=== PATIENT | male | born 1960 | race Caucasian/White ===

== ENCOUNTER 2018-12-19 18:35 | Inpatient (IN) | payer OTHER, SELFPAY ==
[2018-12-19] MEDS ORDERED: Fentanyl 100 MCG/2 ML VIAL ONE (18:49)
[2018-12-19] MEDS ORDERED: Midazolam HCl 2 mg/2 ml Vial ONE (18:49)
[2018-12-19] MEDS ORDERED: Atropine Sulfate 1 mg/1 ml Vial ONE (18:50)
[2018-12-19] MEDS ORDERED: DOPamine 400 MG/D5W 250 ML 0 ML ONE (18:50)
[2018-12-19] MEDS ORDERED: Morphine 2 MG/ML SYRINGE ONE (18:53)
[2018-12-19] MEDS ORDERED: Heparin 10,000 UNITS/1 ML VIAL ONE (19:04)
[2018-12-19] MEDS ORDERED: Milk Of Magnesia 30 ML UDCUP PO PRN (19:36)
[2018-12-19] MEDS ORDERED: Mag-Al 1200 mg/1200 mg/30 ML UDCUP PO PRN (19:36)
[2018-12-19] MEDS ORDERED: Sodium Chloride 0.9% 1,000 ML IV SCH (19:45)
--- NOTE | 2018-12-19 20:20 | RAD ---
CHEST ONE VIEW: 12/19/18 INDICATION: Post interventional cardiology. COMPARISON: Prior exam dated 04/05/09. FINDINGS: The lungs are clear. No pleural effusion or pneumothorax is evident. The heart size is normal. No def inite acute osseous abnormalities evident. IMPRESSION: No acute cardiopulmonary abnormalities. POS: ALLAN
[2018-12-19] MEDS ORDERED: Nitroglycerin 50 MG/250 ML BOT 250 ML IVPB PRN (20:21)
[2018-12-19 20:27] VITALS: BMI 26.0
[2018-12-19] MEDS: Atorvastatin Calcium 40 MG TAB PO SCH (20:33)
[2018-12-19] MEDS: Morphine 4 MG/ML VIAL SLOW IVP PRN (20:33)
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
[2018-12-19 21:10] LABS: CKMB 6.4 ng/mL (0-6.6)
[2018-12-19 21:14] LABS: Troponin I 5.222 ng/mL (< 0.028)
[2018-12-19] MEDS: TICAGRELOR 90 MG TABLET PO SCH (22:02)
[2018-12-20 02:43] LABS: CKMB 26.3 ng/mL (0-6.6); Troponin I 6.682 ng/mL (< 0.028)
[2018-12-20 05:57] LABS: ALT (SGPT) 19 U/L (8-55); AST (SGOT) 39 U/L (5-34); Albumin 3.8 g/dL (3.5-5.0); Alkaline Phosphatase 91 U/L (40-150); Anion Gap 11 mmol/L (10-20); BUN (Urea Nitrogen) 12 mg/dL (8.4-25.7); Bilirubin, Total 0.4 mg/dL (0.2-1.2); Calc. Creatinine Clearance 83 mL/min (70-130); Calcium 9.1 mg/dL (7.8-10.44); Carbon Dioxide 23 mmol/L (22-29); Chloride 105 mmol/L (98-107); Estimated GFR-MDRD 72; Globulin 3.1 g/dL (2.4-3.5); Glucose 118 mg/dL (70-105); Potassium 3.9 mmol/L (3.5-5.1); Protein, Total 6.9 g/dL (6.0-8.3); Sodium 135 mmol/L (136-145)
[2018-12-20 06:06] LABS: #Basophils 0.1 thou/uL (0.0-0.2); #Eosinphils 0.3 thou/uL (0.0-0.7); #Neutrophils 6.6 thou/uL (1.40-6.50); %Basophils 0.8 % (0.0-1.0); %Eosinophils 3.4 % (0.0-10.0); %Lymphocytes 19.7 % (21.0-51.0); %Monocytes 9.9 % (0.0-10.0); %Neutrophils 66.2 % (42.0-75.0); Hemoglobin 14.5 g/dL (14.0-18.0); Mean Corpuscular HGB CONC 32.5 g/dL (32.0-36.0); Mean Corpuscular Hemoglobin 29.7 pg (27.0-31.0); Mean Corpuscular Volume 91.3 fL (78.0-98.0); Mean Platelet Volume 6.5 fL (7.4-10.4); Platelet Count 277 thou/uL (130-400); RBC Distribution Width 11.9 % (11.5-14.5); Red Blood Cell (RBC) Count 4.89 mill/uL (4.70-6.10)
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
[2018-12-20 07:42] LABS: Cardiac Risk 4.7 (Less than 4.5)
[2018-12-20] MEDS: Carvedilol 3.125 MG TAB PO SCH ×2 (08:51→17:18)
[2018-12-20] MEDS: Aspirin Chewable 81 MG TAB PO SCH (08:52)
[2018-12-20] MEDS: Lisinopril 2.5 MG TAB PO SCH (08:52)
[2018-12-20] MEDS: TICAGRELOR 90 MG TABLET PO SCH ×2 (08:52→20:47)
[2018-12-20] MEDS: Morphine 4 MG/ML VIAL SLOW IVP PRN (10:57)
--- NOTE | 2018-12-20 11:48 | PDOC.CTH ---
Cardiology Progress Note - Subjective He is doing better. No chest pain. He does admit to lower back pain and neck pain from having to lay flat for too long. - Objective Vital Signs Temp Pulse BP Pulse Ox 12/20/18 09:00 98.1 F 12/20/18 08:52 80 134/93 H 12/20/18 08:00 98 12/20/18 07:00 98.4 F 12/20/18 04:00 98.0 F 12/20/18 00:00 98.3 F Weight 166 lb 3.657 oz 12/19/18 12/20/18 12/21/18 06:59 06:59 06:59 Intake Total 921.3 422 Output Total 950 0 Balance -28.7 422 - Physical Examination General/Neuro: alert & oriented x3, NAD Neck: no JVD present Lungs: CTA, unlabored respirations Heart: RRR Abdomen: NT/ND Extremities: other: (No edema. right BKA.) - Telemetry Telemetry Rhythm: NSR, PVC's. - Labs Result Diagrams: 12/20/18 05:12 12/20/18 05:12 Troponin/CKMB CK-MB (CK-2) 26.3 ng/mL (0-6.6) H* 12/20/18 02:04 Troponin I 6.682 ng/mL (< 0.028) H* 12/20/18 02:04 - Assessment/Plan 1. Acute anterior STEMI 2. Tobacco use. 3. S/P BMS to LAD. 4. Severe LV dysfunction, EF on echo 20-25% PLAN: - Continue MICHELLE - BB and ACEI as BP allow. - High dose statins. - Will transfer to floor. - Will need lifevest before discharge. - Pain control.
[2018-12-20 13:33] LABS: Amphetamine Detected (NotDetected); Barbiturates Screen Not Detected (NotDetected); Benzodiazepine Screen Not Detected (NotDetected); Cocaine Metabolite Screen Not Detected (NotDetected); Medtox Control Line Valid? VALID (VALID); Medtox Reader # READER 4; Methadone Not Detected (NotDetected); Methamphetamine Not Detected (NotDetected); Opiate Screen Not Detected (NotDetected); Oxycodone Screen Not Detected (NotDetected); Phencyclidine (PCP) Not Detected (NotDetected); THC/Cannabinoid Screen Detected (NotDetected); Tricyclic Screen Not Detected (NotDetected)
[2018-12-20] MEDS: Atorvastatin Calcium 40 MG TAB PO SCH (20:47)
[2018-12-21] MEDS: traMADol HCl 50 MG TAB PO PRN ×2 (03:09→23:30)
[2018-12-21 04:55] LABS: #Eosinphils 0.6 thou/uL (0.0-0.7); #Lymphocytes 1.7 thou/uL (1.20-3.40); #Neutrophils 8.5 thou/uL (1.40-6.50); %Basophils 0.3 % (0.0-1.0); %Eosinophils 4.9 % (0.0-10.0); %Lymphocytes 14.4 % (21.0-51.0); %Monocytes 8.8 % (0.0-10.0); %Neutrophils 71.7 % (42.0-75.0); Hemoglobin 15.5 g/dL (14.0-18.0); Mean Corpuscular HGB CONC 32.5 g/dL (32.0-36.0); Mean Corpuscular Hemoglobin 29.2 pg (27.0-31.0); Mean Corpuscular Volume 89.9 fL (78.0-98.0); Mean Platelet Volume 6.7 fL (7.4-10.4); Platelet Count 306 thou/uL (130-400); RBC Distribution Width 11.8 % (11.5-14.5); Red Blood Cell (RBC) Count 5.32 mill/uL (4.70-6.10); White Blood Cell (WBC) Count 11.8 thou/uL (4.8-10.8)
[2018-12-21 05:18] LABS: ALT (SGPT) 19 U/L (8-55); AST (SGOT) 30 U/L (5-34); Alkaline Phosphatase 100 U/L (40-150); Anion Gap 15 mmol/L (10-20); BUN (Urea Nitrogen) 12 mg/dL (8.4-25.7); Bilirubin, Total 0.6 mg/dL (0.2-1.2); Calc. Creatinine Clearance 88 mL/min (70-130); Calcium 9.6 mg/dL (7.8-10.44); Carbon Dioxide 22 mmol/L (22-29); Chloride 102 mmol/L (98-107); Estimated GFR-MDRD 77; Globulin 3.5 g/dL (2.4-3.5); Glucose 112 mg/dL (70-105); Potassium 4.1 mmol/L (3.5-5.1); Protein, Total 7.5 g/dL (6.0-8.3); Sodium 135 mmol/L (136-145)
--- NOTE | 2018-12-21 06:56 | EKG ---
Test Reason : Blood Pressure : / mmHG Vent. Rate : 075 BPM Atrial Rate : 075 BPM P-R Int : 128 ms QRS Dur : 094 ms QT Int : 454 ms P-R-T Axes : 002 -19 240 degrees QTc Int : 506 ms Normal sinus rhythm Prolonged QT Abnormal ECG No previous ECGs available Confirmed by GRIFFIN SNOW ([id number]) on 12/21/2018 6:55:57 AM Referred By: REA Confirmed By:GRIFFIN SNOW
--- NOTE | 2018-12-21 07:01 | EKG ---
Test Reason : Blood Pressure : / mmHG Vent. Rate : 085 BPM Atrial Rate : 085 BPM P-R Int : 126 ms QRS Dur : 102 ms QT Int : 432 ms P-R-T Axes : -04 -12 257 degrees QTc Int : 514 ms Sinus rhythm with Premature atrial complexes Prolonged QT Abnormal ECG When compared with ECG of 19-DEC-2018 20:01, (Unconfirmed) Premature atrial complexes are now Present Confirmed by GRIFFIN SNOW ([id number]) on 12/21/2018 7:00:38 AM Referred By: REA Confirmed By:GRIFFIN SNOW
[2018-12-21] MEDS: TICAGRELOR 90 MG TABLET PO SCH ×2 (09:53→20:30)
[2018-12-21] MEDS: Aspirin Chewable 81 MG TAB PO SCH (09:55)
[2018-12-21] MEDS: Lisinopril 2.5 MG TAB PO SCH (09:55)
[2018-12-21] MEDS: Carvedilol 3.125 MG TAB PO SCH ×2 (09:55→17:39)
--- NOTE | 2018-12-21 16:40 | PDOC.CTH ---
Cardiology Progress Note - Subjective He is feeling better every day. No chest pain. - Objective Vital Signs Temp Pulse BP BP 12/21/18 10:05 98.1 F 121/67 12/21/18 09:55 80 128/73 Weight 160 lb 9 oz 12/20/18 12/21/18 12/22/18 06:59 06:59 06:59 Intake Total 921.3 792 Output Total 950 850 Balance -28.7 -58 - Physical Examination General/Neuro: alert & oriented x3, NAD Neck: no JVD present Lungs: CTA, unlabored respirations Heart: RRR Abdomen: NT/ND Extremities: other: (no edema. right BKA.) - Telemetry Telemetry Rhythm: NSR - Labs Result Diagrams: 12/21/18 04:10 12/21/18 04:10 Troponin/CKMB CK-MB (CK-2) 26.3 ng/mL (0-6.6) H* 12/20/18 02:04 Troponin I 6.682 ng/mL (< 0.028) H* 12/20/18 02:04 - Assessment/Plan 1. Acute anterior STEMI 2. Tobacco use. 3. S/P BMS to LAD. 4. Severe LV dysfunction, EF on echo 20-25% PLAN: - Continue MICHELLE, I have given him samples of brilinta to last him 1 month and a coupon for a second month. - I also gave him a sample of aspirin 81 mg for one month. - BB and ACEI at current doses. - High dose statins. - We spoke about lifevest and he is not interested. - Will d/c home in the morning if he remains stable.
[2018-12-21] MEDS: Atorvastatin Calcium 40 MG TAB PO SCH (20:30)
[2018-12-22 05:10] LABS: #Eosinphils 0.9 thou/uL (0.0-0.7); #Lymphocytes 2.4 thou/uL (1.20-3.40); #Monocytes 1.3 thou/uL (0.11-0.59); #Neutrophils 8.1 thou/uL (1.40-6.50); %Basophils 0.4 % (0.0-1.0); %Eosinophils 7.2 % (0.0-10.0); %Lymphocytes 18.9 % (21.0-51.0); %Monocytes 9.8 % (0.0-10.0); %Neutrophils 63.8 % (42.0-75.0); Hemoglobin 15.1 g/dL (14.0-18.0); Mean Corpuscular HGB CONC 32.5 g/dL (32.0-36.0); Mean Corpuscular Hemoglobin 29.3 pg (27.0-31.0); Mean Corpuscular Volume 90.3 fL (78.0-98.0); Mean Platelet Volume 6.8 fL (7.4-10.4); Platelet Count 311 thou/uL (130-400); RBC Distribution Width 11.9 % (11.5-14.5); Red Blood Cell (RBC) Count 5.15 mill/uL (4.70-6.10); White Blood Cell (WBC) Count 12.8 thou/uL (4.8-10.8)
[2018-12-22 05:29] LABS: ALT (SGPT) 20 U/L (8-55); AST (SGOT) 21 U/L (5-34); Albumin 3.8 g/dL (3.5-5.0); Alkaline Phosphatase 93 U/L (40-150); Anion Gap 11 mmol/L (10-20); BUN (Urea Nitrogen) 16 mg/dL (8.4-25.7); Bilirubin, Total 0.5 mg/dL (0.2-1.2); Calc. Creatinine Clearance 72 mL/min (70-130); Calcium 9.5 mg/dL (7.8-10.44); Carbon Dioxide 26 mmol/L (22-29); Chloride 102 mmol/L (98-107); Estimated GFR-MDRD 64; Globulin 3.4 g/dL (2.4-3.5); Glucose 112 mg/dL (70-105); Potassium 4.3 mmol/L (3.5-5.1); Protein, Total 7.2 g/dL (6.0-8.3); Sodium 135 mmol/L (136-145)
[2018-12-22] MEDS: TICAGRELOR 90 MG TABLET PO SCH (09:05)
[2018-12-22] MEDS: Aspirin Chewable 81 MG TAB PO SCH (09:05)
[2018-12-22] MEDS: Lisinopril 2.5 MG TAB PO SCH (09:05)
[2018-12-22] MEDS: Carvedilol 3.125 MG TAB PO SCH (09:05)
[2018-12-22 09:06] VITALS: BP 128/73
--- NOTE | 2018-12-22 12:50 | DIS ---
DATE OF ADMISSION: 12/19/2018 DATE OF DISCHARGE: 12/21/2018 DISCHARGING PHYSICIAN: Rik De Leon MD. PRIMARY DIAGNOSES: 1. Anterior ST-elevation myocardial infarction. 2. Ischemic cardiomyopathy. Ejection fraction at 30% to 35%. 3. Late presentation myocardial infarction. HOSPITAL SUMMARY: Mr. Rey is a pleasant 58-year-old white gentleman, who came to the hospital for shortness of breath. He was actually having chest pain for 3 days before he showed up to the hospital. He came in via EMS, was found to have anterior ST elevation, was taken to the catheterization lab emergently, where he was found to have a thrombosed subtotal LAD. This was wired and a bare-metal stent was placed successfully. Good results. He did well. His shortness of breath and his chest pain resolved after stenting. He did well postoperatively. He has been in sinus. No arrhythmias. Echo revealed EF of 30% to 35%. We offered a LifeVest, he declined because of cost. At this time, he has tolerated beta-kayla, JOSY inhibitor, high dose statin, Brilinta, and aspirin. He will be discharged home in a stable condition. I actually personally gave him one whole month of Brilinta at 90 mg twice a day. I gave him a total of 28 pills plus the 2-3 days that he was here that completes 30 days that should be enough for his bare-metal stent. I also gave him samples of aspirin 81 mg daily. He get a bottle of 30 pills on discharge. We also tried to get him help with his atorvastatin, Coreg, and lisinopril. These should be very inexpensive for him at the [facility] at 4 dollars a month for each, except for the Lipitor, which will be a little bit more pricey, we may want to change it to pravastatin, if this is not affordable. We will plan on following up with him in 1 month in the office. I gave him my card. He will call to set up an appointment. DISCHARGE MEDICATIONS: 1. Brilinta 90 mg p.o. b.i.d. for 1 month. 2. Aspirin 81 mg a day. 3. Lipitor 80 mg at bedtime. 4. Lisinopril 2.5 mg a day. 5. Coreg 3.125 b.i.d. TIME SPENT: Over 30 minutes were spent at bedside on discharge. Job ID: [id number]
[2018-12-22 13:36] VITALS: TEMP 97.6
--- NOTE | 2018-12-25 12:37 | PQF ---
ERINDYLAN REASUZETTE [id number] CLINICAL DOCUMENTATION CLARIFICATION FORM: POST DISCHARGE Addendum to original discharge summary date: ____ Late entry note date: __ DATE: 12/25/18 ATTN: Dr. De Leon Please exercise your independent, professional judgment in responding to the clarification form. Clinical indicators are provided on the bottom of this form for your review Please check appropriate box(s): In the description of the operative procedure of small edge dissection was noted by the surgeon. If possible would you please further clarify if this was: [ ] Incidental occurrence inherent in the surgical procedure [ ] Complication of the procedure [x ] Other ____Expected and not a considered a complication [ ] Unable to determine For continuity of documentation, please document condition throughout progress notes and discharge summary. Thank You. CLINICAL INDICATORS - SIGNS / SYMPTOMS / LABS He had 2 bare metal stents placed as the first one had a small edge dissection distally----H&P Successful PCI to mid LAD with 3.0 x 16mm BMS followed by a 3.0 x 8mm BMS distal due to small edge dissection--12/19 Cardiac diagnostic & PCI report RISK FACTORS Anterior ST-elevation myocardial infarction---Discharge summary TREATMENTS: Left heart cath and PTCA with 2 bare metal stents---performed 12/19/18 Thank you, Jenn Arnold, [facility] 12/25/18 12:33PM (This form is maintained as a part of the permanent medical record) 2014 [employer]. All Rights Reserved Jenn [email or web address] [phone] [email or web address]
== END 2018-12-22 15:55 | disposition home or self-care (01) | DRG 249 ==
LOC: ERS 18:35 → SDC/OP 19:04 → CCU 19:06 → IMCU/EMU 12-20 18:15
PROVIDERS: ADMIT Internal Medicine Cardiovascular Disease; ATTEND Internal Medicine Cardiovascular Disease
PROC: 02703EZ Dilation of Coronary Artery, One Artery with Two Intraluminal Devices, Percutaneous Approach (ICD-10-PCS; principal; 2018-12-19)
PROC: 4A023N7 Measurement of Cardiac Sampling and Pressure, Left Heart, Percutaneous Approach (ICD-10-PCS; 2018-12-19)
PROC: B2111ZZ Fluoroscopy of Multiple Coronary Arteries using Low Osmolar Contrast (ICD-10-PCS; 2018-12-19)
DX: I21.09 ST elevation (STEMI) myocardial infarction involving other coronary artery of anterior wall (principal); F17.210 Nicotine dependence, cigarettes, uncomplicated; I25.5 Ischemic cardiomyopathy; I25.10 Atherosclerotic heart disease of native coronary artery without angina pectoris; F15.10 Other stimulant abuse, uncomplicated; F14.10 Cocaine abuse, uncomplicated; Z89.511 Acquired absence of right leg below knee; Z86.73 Personal history of transient ischemic attack (TIA), and cerebral infarction without residual deficits; Z98.890 Other specified postprocedural states
CPT/HCPCS: 36415; 71045; 80053; 80061; 80306; 82553; 84484; 85025; 92928; 93005; 93010; 93306; 93458; 93798; 99285; C1725; C1769; C1876; C1887; J0461; J1265; J1644; J2250; J2270; J3010

== ENCOUNTER 2021-08-09 23:38 | Inpatient (IN) | payer SELFPAY ==
[2021-08-10 00:02] LABS: Hemoglobin 14.7 g/dL (14.0-18.0); Mean Corpuscular HGB CONC 32.7 g/dL (32.0-36.0); Mean Corpuscular Hemoglobin 30.7 pg (27.0-31.0); Mean Corpuscular Volume 93.9 fL (78.0-98.0); Mean Platelet Volume 7.1 fL (7.4-10.4); Platelet Count 214 thou/uL (130-400); RBC Distribution Width 12.4 % (11.5-14.5); Red Blood Cell (RBC) Count 4.78 mill/uL (4.70-6.10); White Blood Cell (WBC) Count 20.7 thou/uL (4.8-10.8)
[2021-08-10 00:08] LABS: INR-International Normal Ratio 1.2; PTT 31.1 sec (22.9-36.1); Prothrombin Time 15.5 sec (12.0-14.7)
[2021-08-10] MEDS ORDERED: Heparin 10,000 UNITS/ 10 ML VIAL ONE ×2 (00:08→10:51)
[2021-08-10] MEDS ORDERED: Lidocaine 1% (PF) 30 ML VIAL ONE (00:09)
[2021-08-10 00:14] LABS: ALT (SGPT) 817 U/L (8-55); AST (SGOT) 700 U/L (5-34); Albumin 3.5 g/dL (3.5-5.0); Alkaline Phosphatase 153 U/L (40-110); Anion Gap 25 mmol/L (10-20); BUN (Urea Nitrogen) 26 mg/dL (8.4-25.7); Bilirubin, Total 0.3 mg/dL (0.2-1.2); CK (CPK) 252 U/L (30-200); Calc. Creatinine Clearance 0 mL/min (70-130); Carbon Dioxide 20 mmol/L (22-29); Chloride 101 mmol/L (98-107); Globulin 2.8 g/dL (2.4-3.5); Glucose 308 mg/dL (70-105); Potassium 4.6 mmol/L (3.5-5.1); Protein, Total 6.3 g/dL (6.0-8.3); Sodium 141 mmol/L (136-145)
[2021-08-10 00:25] LABS: Actual Bicarbonate (HCO3a) 17.4 mEq/L (22-28); Analyzer IN Cardio ER; Base Excess (BEa) -10.3 mEq/L (-2.0 to +3.0); CO2 Tension 45.1 mmHg (35.0-45.0); Calcium, Ionized (arterial) 1.28 mmol/L (1.12-1.30); Carboxyhemoglobin (COHb) 2.7 gm% (0.0-3.0); Hemoglobin (Hb) 14.4 g/dL (14.0-18.0); O2 Tension (PaO2), arterial 289.9 mmHg (80.0-100.0); Potassium - ABG Lab 4.64 mmol/L (3.70-5.30)
[2021-08-10] MEDS ORDERED: Nitroglycerin 0.4 MG TAB (25 Tab Bottle) SL PRN (00:33)
[2021-08-10 00:44] LABS: Band 13 % (5-11); Eosinophils 3 % (0-10); Lymphocytes 31 % (21-51); MDiff Complete? YES; Monocytes 5 % (0-10); Myelocyte 1 % (0-0); Neutrophil 45 % (42-75); Reactive Lymphocytes 2 % (0-10)
[2021-08-10 00:53] LABS: SARS-CoV-2 NAA Rapid Test Not Detected (NotDetected)
[2021-08-10 00:56] LABS: Bacteria/HPF None Seen HPF (None Seen); Bilirubin Negative (Negative); Blood, Urine 2+ (Negative); Clarity Turbid (Clear); Glucose, Urine (Dipstick) 50 mg/dL (Negative); Ketone, Urine Trace mg/dL (Negative); Leukocyte Negative Leu/uL (Negative); Nitrite Negative (Negative); Protein, Urine (Dipstick) 100 mg/dL (Neg-Trace); Squamous Epithelial 0-3 HPF (0-3); Urobilinogen Normal mg/dL (Less than 2); pH, Urine 5.5 (5.0-9.0)
[2021-08-10 01:02] LABS: Sperm/HPF 3+ HPF (None Seen)
[2021-08-10 01:22] LABS: CKMB 17.7 ng/mL (0-6.6)
[2021-08-10] MEDS ORDERED: Cefepime 2 GM VIAL ONE (01:24)
[2021-08-10] MEDS ORDERED: Ondansetron PF 4 MG/2 ML Vial IVP PRN (01:34)
[2021-08-10] MEDS ORDERED: Ondansetron ODT 4 MG TAB PO PRN (01:34)
[2021-08-10] MEDS ORDERED: Acetaminophen 650 MG Suppository PR PRN (01:34)
[2021-08-10] MEDS ORDERED: Propofol 1,000 MG/100 ML VIAL IV PRN (02:15)
[2021-08-10] MEDS ORDERED: Propofol BOLUS 1,000 MG/100 ML VIAL IV PRN (02:15)
[2021-08-10] MEDS ORDERED: Fentanyl BOLUS 250 ML IVPB PRN (02:15)
[2021-08-10] MEDS ORDERED: DISCONTINUE PREVIOUS NARCOTIC PAIN MEDICATIONS AND BENZODIAZEPINES FS SCH (02:15)
[2021-08-10] MEDS ORDERED: Fentanyl CADD 100 ML IV SCH (02:15)
[2021-08-10] MEDS ORDERED: Morphine 2 MG/ML VIAL SLOW IVP PRN (02:15)
[2021-08-10 02:21] LABS: Troponin I 5.305 ng/mL (< 0.028)
[2021-08-10 04:12] LABS: Lactic Acid 2.2 mmol/L (0.5-2.2)
[2021-08-10] MEDS: Nitroglycerin 2% Ointment 1 INCH/1 GM Packet TOP SCH ×2 (04:25→14:24)
[2021-08-10] MEDS ORDERED: Morphine 4 MG/ML VIAL SLOW IVP PRN (04:30)
[2021-08-10 04:31] LABS: Troponin I 20.176 ng/mL (< 0.028)
[2021-08-10 04:48] LABS: ALT (SGPT) 924 U/L (8-55); AST (SGOT) 912 U/L (5-34); Albumin 3.8 g/dL (3.5-5.0); Alkaline Phosphatase 163 U/L (40-110); Bilirubin, Direct 0.4 mg/dL (0.1-0.3); Bilirubin, Total 1.1 mg/dL (0.2-1.2); Protein, Total 7.4 g/dL (6.0-8.3)
[2021-08-10 05:16] LABS: BUN (Urea Nitrogen) 32 mg/dL (8.4-25.7); Calc. Creatinine Clearance 34 mL/min (70-130); Calcium 9.8 mg/dL (7.8-10.44); Carbon Dioxide 20 mmol/L (22-29); Chloride 105 mmol/L (98-107); Glucose 170 mg/dL (70-105); Potassium 3.8 mmol/L (3.5-5.1); Sodium 140 mmol/L (136-145)
[2021-08-10 05:17] LABS: #Eosinphils 0.1 thou/uL (0.0-0.7); #Lymphocytes 1.4 thou/uL (1.20-3.40); #Monocytes 1.6 thou/uL (0.11-0.59); #Neutrophils 15.1 thou/uL (1.40-6.50); %Basophils 0.1 % (0.0-1.0); %Eosinophils 0.3 % (0.0-10.0); %Lymphocytes 7.6 % (21.0-51.0); Hemoglobin 15.5 g/dL (14.0-18.0); Mean Corpuscular HGB CONC 33.4 g/dL (32.0-36.0); Mean Corpuscular Hemoglobin 29.6 pg (27.0-31.0); Mean Corpuscular Volume 88.6 fL (78.0-98.0); Mean Platelet Volume 7.5 fL (7.4-10.4); Platelet Count 256 thou/uL (130-400); RBC Distribution Width 12.5 % (11.5-14.5); Red Blood Cell (RBC) Count 5.22 mill/uL (4.70-6.10); White Blood Cell (WBC) Count 18.2 thou/uL (4.8-10.8)
[2021-08-10 06:49] LABS: Anion Gap 19 mmol/L (10-20)
[2021-08-10] MEDS ORDERED: Norepinephrine 8 MG/0.9% NS 250 ML IVPB PRN (07:27)
[2021-08-10] MEDS ORDERED: HumaLOG 300 UNITS/3 ML VIAL SC PRN (07:27)
[2021-08-10] MEDS ORDERED: Dextrose 50% Abboject 50 ML SYRINGE IVP PRN (07:45)
[2021-08-10] MEDS ORDERED: Dextrose 5% in Water 1,000 ML IV PRN (07:45)
[2021-08-10 08:04] LABS: Actual Bicarbonate (HCO3a) 18.6 mEq/L (22-28); Base Excess (BEa) -1.5 mEq/L (-2.0 to +3.0); Calcium, Ionized (arterial) 1.15 mmol/L (1.12-1.30); Carboxyhemoglobin (COHb) 0.3 gm% (0.0-3.0); Hemoglobin (Hb) 15.4 g/dL (14.0-18.0); O2 Tension (PaO2), arterial 225.8 mmHg (80.0-100.0); Potassium - ABG Lab 3.55 mmol/L (3.70-5.30); pH, Arterial 7.54 (7.35-7.45)
[2021-08-10 08:09] LABS: Puncture Site RBA
[2021-08-10] MEDS: Pantoprazole 40 MG VIAL IVP SCH (09:23)
[2021-08-10] MEDS: Vancomycin HCl 750 MG in Sodium Chloride 0.9% 250 ML 250 ML IVPB SCH (09:23)
[2021-08-10] MEDS ORDERED: Heparin 25,000 units/D5W 500 ML IV SCH (09:30)
[2021-08-10] MEDS ORDERED: Heparin 10,000 UNITS/ 10 ML VIAL SLOW IVP SCH (09:30)
[2021-08-10 11:08] LABS: Amphetamine Detected (NotDetected); Barbiturates Screen Not Detected (NotDetected); Benzodiazepine Screen Not Detected (NotDetected); Cocaine Metabolite Screen Not Detected (NotDetected); Methadone Not Detected (NotDetected); Methamphetamine Detected (NotDetected); Opiate Screen Detected (NotDetected); Oxycodone Screen Not Detected (NotDetected); Phencyclidine (PCP) Not Detected (NotDetected); THC/Cannabinoid Screen Detected (NotDetected); Tricyclic Screen Not Detected (NotDetected)
[2021-08-10] MEDS ORDERED: VANCOMYCIN 1.25 GM/250 ML BAG 1.25 GM in Premix Bag 1 BAG IVPB SCH (13:00)
[2021-08-10] MEDS: Lorazepam 2 MG/ML VIAL SLOW IVP PRN ×2 (14:24→23:52)
[2021-08-10] MEDS: Cefepime 2 GM in Sodium Chloride 0.9% 100 ML IVPB SCH (15:30)
[2021-08-10] MEDS: Acetaminophen 325 MG TAB PO PRN ×2 (17:42→23:52)
[2021-08-10] MEDS ORDERED: Sodium Chloride 0.9% 1,000 ML IV SCH (18:45)
[2021-08-10 18:46] LABS: pH, Arterial 7.21 (7.35-7.45)
[2021-08-10 18:47] LABS: ALV-art Gradient 224.125 mmHg (0-20); Puncture Site RRA
[2021-08-10] MEDS: Sodium Chloride 0.9% 1,000 ML IV SCH (19:27)
[2021-08-11] MEDS: Cefepime 2 GM in Sodium Chloride 0.9% 100 ML IVPB SCH ×2 (03:03→16:15)
[2021-08-11] MEDS ORDERED: Acetaminophen 650 MG/20.3 ML UDCUP PO PRN (03:54)
[2021-08-11 04:19] LABS: Albumin 3.1 g/dL (3.5-5.0)
[2021-08-11 04:20] LABS: Chloride 109 mmol/L (98-107); Potassium 4.5 mmol/L (3.5-5.1); Sodium 139 mmol/L (136-145)
[2021-08-11 04:22] LABS: Globulin 2.7 g/dL (2.4-3.5); Glucose 143 mg/dL (70-105); Protein, Total 5.8 g/dL (6.0-8.3); Triglycerides 97 mg/dL (Less than 150)
[2021-08-11 04:23] LABS: Bilirubin, Total 0.6 mg/dL (0.2-1.2); Carbon Dioxide 18 mmol/L (22-29)
[2021-08-11 04:24] LABS: Alkaline Phosphatase 114 U/L (40-110)
[2021-08-11 04:25] LABS: Calc. Creatinine Clearance 32 mL/min (70-130)
[2021-08-11 04:26] LABS: BUN (Urea Nitrogen) 42 mg/dL (8.4-25.7)
[2021-08-11 04:27] LABS: AST (SGOT) 312 U/L (5-34); Cardiac Risk 3.7 (Less than 4.5); Cholesterol 130 mg/dl (< 200 Desired); HDL Cholesterol 35 mg/dL (>60 Neg Risk); LDL Cholesterol, Calculated 76 mg/dL
[2021-08-11 04:28] LABS: ALT (SGPT) 461 U/L (8-55)
[2021-08-11 04:40] LABS: Anion Gap 17 mmol/L (10-20); Calcium 7.8 mg/dL (7.8-10.44)
[2021-08-11 04:53] LABS: Phosphorus 3.5 mg/dL (2.3-4.7)
[2021-08-11] MEDS: Sodium Chloride 0.9% 1,000 ML IV SCH ×2 (05:53→16:58)
[2021-08-11 07:15] LABS: Hemoglobin 13.9 g/dL (14.0-18.0); Mean Corpuscular HGB CONC 33.3 g/dL (32.0-36.0); Mean Corpuscular Hemoglobin 30.4 pg (27.0-31.0); Mean Corpuscular Volume 91.5 fL (78.0-98.0); Platelet Count 167 thou/uL (130-400); RBC Distribution Width 12.7 % (11.5-14.5); Red Blood Cell (RBC) Count 4.57 mill/uL (4.70-6.10); White Blood Cell (WBC) Count 23.8 thou/uL (4.8-10.8)
[2021-08-11 07:19] LABS: Actual Bicarbonate (HCO3a) 19.4 mEq/L (22-28); Base Excess (BEa) -3.1 mEq/L (-2.0 to +3.0); CO2 Tension 27.8 mmHg (35.0-45.0); Calcium, Ionized (arterial) 1.08 mmol/L (1.12-1.30); Carboxyhemoglobin (COHb) 0.3 gm% (0.0-3.0); Hemoglobin (Hb) 13.6 g/dL (14.0-18.0); O2 Tension (PaO2), arterial 106.3 mmHg (80.0-100.0); Potassium - ABG Lab 3.73 mmol/L (3.70-5.30); pH, Arterial 7.46 (7.35-7.45)
[2021-08-11 07:29] LABS: Puncture Site RRA
[2021-08-11 08:53] LABS: Band 10 % (5-11); Lymphocytes 8 % (21-51); MDiff Complete? YES; Monocytes 8 % (0-10); Neutrophil 74 % (42-75); Platelet Morphology Comment Appears Adequate; RBC Morphology Normal
[2021-08-11] MEDS: Vancomycin HCl 750 MG in Sodium Chloride 0.9% 250 ML 250 ML IVPB SCH (09:17)
[2021-08-11] MEDS: Pantoprazole 40 MG VIAL IVP SCH (09:18)
[2021-08-12 03:47] LABS: ALT (SGPT) 250 U/L (8-55); AST (SGOT) 128 U/L (5-34); Albumin 2.8 g/dL (3.5-5.0); Alkaline Phosphatase 85 U/L (40-110); Anion Gap 14 mmol/L (10-20); BUN (Urea Nitrogen) 36 mg/dL (8.4-25.7); Bilirubin, Total 0.5 mg/dL (0.2-1.2); Calc. Creatinine Clearance 38 mL/min (70-130); Carbon Dioxide 20 mmol/L (22-29); Chloride 112 mmol/L (98-107); Globulin 2.9 g/dL (2.4-3.5); Glucose 102 mg/dL (70-105); Protein, Total 5.7 g/dL (6.0-8.3); Sodium 142 mmol/L (136-145)
[2021-08-12] MEDS: Cefepime 2 GM in Sodium Chloride 0.9% 100 ML IVPB SCH ×2 (03:57→15:25)
[2021-08-12] MEDS: Sodium Chloride 0.9% 1,000 ML IV SCH ×2 (03:58→16:27)
[2021-08-12 04:24] LABS: #Eosinphils 0.3 thou/uL (0.0-0.7); #Lymphocytes 1.7 thou/uL (1.20-3.40); #Monocytes 1.7 thou/uL (0.11-0.59); #Neutrophils 12.4 thou/uL (1.40-6.50); %Basophils 0.1 % (0.0-1.0); %Eosinophils 1.9 % (0.0-10.0); %Lymphocytes 10.6 % (21.0-51.0); %Monocytes 10.2 % (0.0-10.0); %Neutrophils 77.2 % (42.0-75.0); Hemoglobin 13.2 g/dL (14.0-18.0); Mean Corpuscular HGB CONC 33.9 g/dL (32.0-36.0); Mean Corpuscular Hemoglobin 30.8 pg (27.0-31.0); Mean Corpuscular Volume 90.8 fL (78.0-98.0); Mean Platelet Volume 8.7 fL (7.4-10.4); Platelet Count 121 thou/uL (130-400); RBC Distribution Width 12.5 % (11.5-14.5); White Blood Cell (WBC) Count 16.1 thou/uL (4.8-10.8)
[2021-08-12 08:11] LABS: Vancomycin, Trough 5.6 ug/mL
[2021-08-12] MEDS: Pantoprazole 40 MG VIAL IVP SCH (08:26)
[2021-08-12] MEDS: Vancomycin HCl 750 MG in Sodium Chloride 0.9% 250 ML 250 ML IVPB SCH (08:26)
[2021-08-12] MEDS ORDERED: Vancomycin HCl 750 MG in Sodium Chloride 0.9% 250 ML 250 ML IVPB SCH (21:00)
[2021-08-13] MEDS: Cefepime 2 GM in Sodium Chloride 0.9% 100 ML IVPB SCH (02:25)
[2021-08-13] MEDS: Enoxaparin Sodium 30 MG/0.3 ML SYRINGE SC SCH (08:37)
[2021-08-13] MEDS: Pantoprazole 40 MG VIAL IVP SCH (08:38)
[2021-08-13 10:22] LABS: Anion Gap 15 mmol/L (10-20); BUN (Urea Nitrogen) 21 mg/dL (8.4-25.7); Calc. Creatinine Clearance 53 mL/min (70-130); Calcium 8.3 mg/dL (7.8-10.44); Carbon Dioxide 21 mmol/L (22-29); Chloride 112 mmol/L (98-107); Glucose 99 mg/dL (70-105); Potassium 3.5 mmol/L (3.5-5.1); Sodium 144 mmol/L (136-145)
[2021-08-13] MEDS: Carvedilol 3.125 MG TAB PO SCH (16:32)
[2021-08-13] MEDS ORDERED: hydrALAZINE 20 MG/ML VIAL SLOW IVP PRN (20:59)
[2021-08-14] MEDS: Lisinopril 2.5 MG TAB PO SCH (08:40)
[2021-08-14] MEDS: Carvedilol 3.125 MG TAB PO SCH ×2 (08:41→18:25)
[2021-08-14] MEDS: Enoxaparin Sodium 30 MG/0.3 ML SYRINGE SC SCH (08:42)
[2021-08-14] MEDS: Pantoprazole 40 MG VIAL IVP SCH (08:43)
[2021-08-14] MEDS ORDERED: Haloperidol Lactate 5 MG/ML VIAL IM SCH (13:45)
[2021-08-15] MEDS: Carvedilol 3.125 MG TAB PO SCH ×2 (08:28→16:34)
[2021-08-15] MEDS: Lisinopril 2.5 MG TAB PO SCH (08:28)
[2021-08-15] MEDS: Enoxaparin Sodium 30 MG/0.3 ML SYRINGE SC SCH (08:31)
[2021-08-15] MEDS: Pantoprazole 40 MG VIAL IVP SCH (08:33)
[2021-08-16 07:02] LABS: Mean Corpuscular HGB CONC 33.4 g/dL (32.0-36.0); Mean Corpuscular Hemoglobin 29.6 pg (27.0-31.0); Mean Corpuscular Volume 88.4 fL (78.0-98.0); Mean Platelet Volume 7.8 fL (7.4-10.4); Platelet Count 296 thou/uL (130-400); RBC Distribution Width 12.3 % (11.5-14.5); Red Blood Cell (RBC) Count 5.08 mill/uL (4.70-6.10); White Blood Cell (WBC) Count 24.9 thou/uL (4.8-10.8)
[2021-08-16 07:18] LABS: Anion Gap 12 mmol/L (10-20); BUN (Urea Nitrogen) 25 mg/dL (8.4-25.7); Calc. Creatinine Clearance 62 mL/min (70-130); Calcium 8.6 mg/dL (7.8-10.44); Carbon Dioxide 26 mmol/L (22-29); Chloride 108 mmol/L (98-107); Glucose 115 mg/dL (70-105); Potassium 3.1 mmol/L (3.5-5.1); Sodium 143 mmol/L (136-145)
[2021-08-16] MEDS: Lisinopril 2.5 MG TAB PO SCH (08:07)
[2021-08-16] MEDS: Enoxaparin Sodium 30 MG/0.3 ML SYRINGE SC SCH (08:08)
[2021-08-16] MEDS: Carvedilol 3.125 MG TAB PO SCH ×3 (08:08→18:16)
[2021-08-16] MEDS ORDERED: Potassium Chloride 20 MEQ TAB PO SCH (09:00)
[2021-08-16] MEDS: cefTRIAXone\\ROCEPHIN 1 GM in Sodium Chloride 0.9% 100 ML IVPB SCH (09:25)
[2021-08-16 09:32] LABS: Band 12 % (5-11); Eosinophils 4 % (0-10); Lymphocytes 6 % (21-51); MDiff Complete? YES; Monocytes 7 % (0-10); Neutrophil 71 % (42-75); Platelet Morphology Comment Appears Adequate; RBC Morphology Normal
[2021-08-16 16:04] LABS: CKMB 1.8 ng/mL (0-6.6)
[2021-08-16 18:29] LABS: Amphetamine Detected (NotDetected); Barbiturates Screen Not Detected (NotDetected); Benzodiazepine Screen Not Detected (NotDetected); Cocaine Metabolite Screen Not Detected (NotDetected); Methadone Not Detected (NotDetected); Methamphetamine Not Detected (NotDetected); Opiate Screen Not Detected (NotDetected); Oxycodone Screen Not Detected (NotDetected); Phencyclidine (PCP) Not Detected (NotDetected); THC/Cannabinoid Screen Detected (NotDetected); Tricyclic Screen Not Detected (NotDetected)
[2021-08-16 19:08] LABS: Critical Call Chem Troponin I RESULT DECREASING
[2021-08-16 19:26] LABS: CKMB 1.7 ng/mL (0-6.6)
[2021-08-17 02:08] LABS: CKMB 1.3 ng/mL (0-6.6)
[2021-08-17 07:23] LABS: #Eosinphils 1.2 thou/uL (0.0-0.7); #Lymphocytes 1.9 thou/uL (1.20-3.40); #Monocytes 1.9 thou/uL (0.11-0.59); #Neutrophils 12.9 thou/uL (1.40-6.50); %Basophils 0.2 % (0.0-1.0); %Eosinophils 6.5 % (0.0-10.0); %Lymphocytes 10.4 % (21.0-51.0); %Monocytes 10.8 % (0.0-10.0); %Neutrophils 72.1 % (42.0-75.0); Hemoglobin 13.9 g/dL (14.0-18.0); Mean Corpuscular Hemoglobin 30.4 pg (27.0-31.0); Mean Corpuscular Volume 89.6 fL (78.0-98.0); Platelet Count 312 thou/uL (130-400); RBC Distribution Width 12.1 % (11.5-14.5); Red Blood Cell (RBC) Count 4.58 mill/uL (4.70-6.10); White Blood Cell (WBC) Count 17.9 thou/uL (4.8-10.8)
[2021-08-17 07:41] LABS: Anion Gap 16 mmol/L (10-20); BUN (Urea Nitrogen) 23 mg/dL (8.4-25.7); Calc. Creatinine Clearance 58 mL/min (70-130); Calcium 8.3 mg/dL (7.8-10.44); Carbon Dioxide 26 mmol/L (22-29); Chloride 106 mmol/L (98-107); Glucose 94 mg/dL (70-105); Potassium 3.4 mmol/L (3.5-5.1); Sodium 145 mmol/L (136-145)
[2021-08-17] MEDS: cefTRIAXone\\ROCEPHIN 1 GM in Sodium Chloride 0.9% 100 ML IVPB SCH (08:42)
[2021-08-17] MEDS: Carvedilol 3.125 MG TAB PO SCH ×2 (08:42→17:26)
[2021-08-17] MEDS: Lisinopril 2.5 MG TAB PO SCH (08:42)
[2021-08-17] MEDS: Enoxaparin Sodium 30 MG/0.3 ML SYRINGE SC SCH (08:42)
[2021-08-17 12:39] LABS: SARS-CoV-2 PCR by NAA Not Detected (NotDetected)
[2021-08-17] MEDS ORDERED: Lorazepam 2 MG/ML VIAL IM SCH (21:45)
[2021-08-18 09:51] LABS: Mean Corpuscular HGB CONC 32.3 g/dL (32.0-36.0); Platelet Count 368 thou/uL (130-400); RBC Distribution Width 12.2 % (11.5-14.5); Red Blood Cell (RBC) Count 4.83 mill/uL (4.70-6.10); White Blood Cell (WBC) Count 25.4 thou/uL (4.8-10.8)
[2021-08-18 10:06] LABS: Anion Gap 14 mmol/L (10-20); BUN (Urea Nitrogen) 25 mg/dL (8.4-25.7); Calc. Creatinine Clearance 54 mL/min (70-130); Calcium 8.9 mg/dL (7.8-10.44); Carbon Dioxide 28 mmol/L (22-29); Chloride 106 mmol/L (98-107); Glucose 77 mg/dL (70-105); Potassium 3.2 mmol/L (3.5-5.1); Sodium 145 mmol/L (136-145)
[2021-08-18] MEDS: cefTRIAXone\\ROCEPHIN 1 GM in Sodium Chloride 0.9% 100 ML IVPB SCH (10:19)
[2021-08-18] MEDS: Enoxaparin Sodium 30 MG/0.3 ML SYRINGE SC SCH (10:20)
[2021-08-18] MEDS: Lisinopril 2.5 MG TAB PO SCH (10:21)
[2021-08-18] MEDS: Carvedilol 3.125 MG TAB PO SCH ×2 (10:21→17:59)
[2021-08-18 10:36] LABS: Band 2 % (5-11); Eosinophils 7 % (0-10); Lymphocytes 11 % (21-51); MDiff Complete? YES; Monocytes 15 % (0-10); Neutrophil 65 % (42-75); Platelet Morphology Comment Appears Adequate; RBC Morphology Normal
[2021-08-18 17:12] LABS: Bacteria/HPF None Seen HPF (None Seen); Bilirubin Negative (Negative); Blood, Urine 2+ (Negative); Clarity Clear (Clear); Glucose, Urine (Dipstick) Normal (Negative); Ketone, Urine Negative (Negative); Leukocyte 250 Leu/uL (Negative); Nitrite Negative (Negative); Protein, Urine (Dipstick) 30 mg/dL (Neg-Trace); Specific Gravity, Urine 1.022 (1.002-1.036); Squamous Epithelial 0-3 HPF (0-3); Urobilinogen Normal mg/dL (Less than 2)
[2021-08-18 17:14] LABS: Urine Culture Reflex Yes Yes
[2021-08-19 08:12] LABS: Anion Gap 18 mmol/L (10-20); BUN (Urea Nitrogen) 20 mg/dL (8.4-25.7); Calc. Creatinine Clearance 0 mL/min (70-130); Calcium 8.9 mg/dL (7.8-10.44); Carbon Dioxide 22 mmol/L (22-29); Chloride 108 mmol/L (98-107); Glucose 100 mg/dL (70-105); Sodium 145 mmol/L (136-145)
[2021-08-19 08:29] LABS: Hemoglobin 14.8 g/dL (14.0-18.0); Mean Corpuscular HGB CONC 30.5 g/dL (32.0-36.0); Mean Corpuscular Hemoglobin 27.1 pg (27.0-31.0); Mean Corpuscular Volume 88.8 fL (78.0-98.0); Mean Platelet Volume 8.2 fL (7.4-10.4); Platelet Count 252 thou/uL (130-400); RBC Distribution Width 12.3 % (11.5-14.5); Red Blood Cell (RBC) Count 5.46 mill/uL (4.70-6.10); White Blood Cell (WBC) Count 37.1 thou/uL (4.8-10.8)
[2021-08-19 08:31] LABS: Band 15 % (5-11); Eosinophils 8 % (0-10); Lymphocytes 7 % (21-51); MDiff Complete? YES; Monocytes 8 % (0-10); Neutrophil 62 % (42-75); Platelet Morphology Comment Appears Adequate; RBC Morphology Normal
[2021-08-19] MEDS ORDERED: Vancomycin 1 GM in Premix Bag 1 BAG IVPB SCH (09:00)
[2021-08-19] MEDS: Enoxaparin Sodium 30 MG/0.3 ML SYRINGE SC SCH (09:54)
[2021-08-19] MEDS: Lisinopril 2.5 MG TAB PO SCH (09:54)
[2021-08-19] MEDS: Carvedilol 3.125 MG TAB PO SCH ×2 (09:54→17:45)
[2021-08-19] MEDS: VANCOMYCIN 1.25 GM/250 ML BAG 1.25 GM in Premix Bag 1 BAG IVPB SCH (10:35)
[2021-08-19] MEDS ORDERED: Haloperidol Lactate 5 MG/ML VIAL SLOW IVP PRN (13:11)
[2021-08-19] MEDS ORDERED: Meropenem 1 GM in Sodium Chloride 0.9% 100 ML IVPB SCH (14:00)
[2021-08-19] MEDS ORDERED: MEROPENEM 1 GM/50 ML 1 GM in Premix Bag 1 BAG IVPB SCH ×2 (14:00→22:00)
[2021-08-19] MEDS: Ziprasidone 20 MG VIAL IM PRN (19:02)
[2021-08-19] MEDS: Sterile Water 10 ML VIAL FS PRN (19:02)
[2021-08-19] MEDS: Meropenem 1 GM in Sodium Chloride 0.9% 100 ML IVPB SCH (21:13)
[2021-08-20] MEDS: Meropenem 1 GM in Sodium Chloride 0.9% 100 ML IVPB SCH ×2 (05:51→16:39)
[2021-08-20] MEDS: Lisinopril 2.5 MG TAB PO SCH (09:02)
[2021-08-20 09:03] VITALS: BMI 17.4
[2021-08-20] MEDS: Carvedilol 3.125 MG TAB PO SCH ×2 (09:03→17:41)
[2021-08-20] MEDS: Enoxaparin Sodium 30 MG/0.3 ML SYRINGE SC SCH (09:15)
[2021-08-20 10:37] LABS: #Basophils 0.1 thou/uL (0.0-0.2); #Eosinphils 1.6 thou/uL (0.0-0.7); #Lymphocytes 1.5 thou/uL (1.20-3.40); #Monocytes 1.4 thou/uL (0.11-0.59); #Neutrophils 14.9 thou/uL (1.40-6.50); %Basophils 0.3 % (0.0-1.0); %Eosinophils 8.1 % (0.0-10.0); %Lymphocytes 7.5 % (21.0-51.0); %Monocytes 7.1 % (0.0-10.0); %Neutrophils 76.9 % (42.0-75.0); Hemoglobin 14.6 g/dL (14.0-18.0); Mean Corpuscular HGB CONC 32.6 g/dL (32.0-36.0); Mean Corpuscular Hemoglobin 28.9 pg (27.0-31.0); Mean Corpuscular Volume 88.7 fL (78.0-98.0); Mean Platelet Volume 7.5 fL (7.4-10.4); Platelet Count 410 thou/uL (130-400); RBC Distribution Width 12.4 % (11.5-14.5); Red Blood Cell (RBC) Count 5.07 mill/uL (4.70-6.10); White Blood Cell (WBC) Count 19.3 thou/uL (4.8-10.8)
[2021-08-20 11:22] LABS: Anion Gap 15 mmol/L (10-20); BUN (Urea Nitrogen) 29 mg/dL (8.4-25.7); Calc. Creatinine Clearance 44 mL/min (70-130); Calcium 8.9 mg/dL (7.8-10.44); Carbon Dioxide 27 mmol/L (22-29); Chloride 108 mmol/L (98-107); Glucose 138 mg/dL (70-105); Potassium 3.1 mmol/L (3.5-5.1); Sodium 147 mmol/L (136-145)
[2021-08-20] MEDS: VANCOMYCIN 1.25 GM/250 ML BAG 1.25 GM in Premix Bag 1 BAG IVPB SCH ×2 (13:27→13:56)
[2021-08-20] MEDS: Sodium Chloride 0.45% 1,000 ML IV SCH ×2 (15:35→18:26)
[2021-08-20] MEDS: MEROPENEM 1 GM/50 ML 1 GM in Premix Bag 1 BAG IVPB SCH (20:33)
[2021-08-21] MEDS: MEROPENEM 1 GM/50 ML 1 GM in Premix Bag 1 BAG IVPB SCH ×3 (05:49→21:25)
[2021-08-21] MEDS: Enoxaparin Sodium 30 MG/0.3 ML SYRINGE SC SCH (08:55)
[2021-08-21] MEDS: Carvedilol 3.125 MG TAB PO SCH ×2 (08:55→17:08)
[2021-08-21] MEDS: Sodium Chloride 0.45% 1,000 ML IV SCH ×2 (08:55→17:17)
[2021-08-21] MEDS: Lisinopril 2.5 MG TAB PO SCH (08:55)
[2021-08-21 13:55] LABS: #Eosinphils 1.1 thou/uL (0.0-0.7); #Neutrophils 8.7 thou/uL (1.40-6.50); %Basophils 0.3 % (0.0-1.0); %Eosinophils 8.7 % (0.0-10.0); %Lymphocytes 15.5 % (21.0-51.0); %Monocytes 7.8 % (0.0-10.0); %Neutrophils 67.7 % (42.0-75.0); Hemoglobin 14.6 g/dL (14.0-18.0); Mean Corpuscular HGB CONC 33.2 g/dL (32.0-36.0); Mean Corpuscular Hemoglobin 29.9 pg (27.0-31.0); Mean Corpuscular Volume 90.2 fL (78.0-98.0); Mean Platelet Volume 7.2 fL (7.4-10.4); Platelet Count 416 thou/uL (130-400); RBC Distribution Width 12.4 % (11.5-14.5); Red Blood Cell (RBC) Count 4.88 mill/uL (4.70-6.10); White Blood Cell (WBC) Count 12.9 thou/uL (4.8-10.8)
[2021-08-21 14:14] LABS: Vancomycin, Trough 8.8 ug/mL
[2021-08-21 14:15] LABS: Anion Gap 10 mmol/L (10-20); BUN (Urea Nitrogen) 27 mg/dL (8.4-25.7); Calc. Creatinine Clearance 48 mL/min (70-130); Calcium 8.7 mg/dL (7.8-10.44); Carbon Dioxide 27 mmol/L (22-29); Chloride 110 mmol/L (98-107); Glucose 97 mg/dL (70-105); Potassium 3.2 mmol/L (3.5-5.1); Sodium 144 mmol/L (136-145)
[2021-08-21] MEDS: Ziprasidone 20 MG VIAL IM PRN (14:25)
[2021-08-21] MEDS: Sterile Water 10 ML VIAL FS PRN (14:28)
[2021-08-21] MEDS: VANCOMYCIN 1.25 GM/250 ML BAG 1.25 GM in Premix Bag 1 BAG IVPB SCH (14:45)
[2021-08-21] MEDS: Vancomycin HCl 750 MG in Sodium Chloride 0.9% 250 ML 250 ML IVPB SCH (17:08)
[2021-08-22] MEDS: Vancomycin HCl 750 MG in Sodium Chloride 0.9% 250 ML 250 ML IVPB SCH ×2 (02:39→16:42)
[2021-08-22] MEDS: Sodium Chloride 0.45% 1,000 ML IV SCH ×2 (03:55→13:31)
[2021-08-22] MEDS: MEROPENEM 1 GM/50 ML 1 GM in Premix Bag 1 BAG IVPB SCH ×3 (03:56→21:00)
[2021-08-22] MEDS ORDERED: Potassium Bicarbonate/Cit Ac 20 MEQ TAB PO SCH (09:45)
[2021-08-22] MEDS: Carvedilol 3.125 MG TAB PO SCH ×2 (10:41→16:47)
[2021-08-22] MEDS: Lisinopril 2.5 MG TAB PO SCH (10:41)
[2021-08-22] MEDS: Enoxaparin Sodium 30 MG/0.3 ML SYRINGE SC SCH (10:41)
[2021-08-22] MEDS: Pantoprazole 40 MG GRANULES PACKET PO SCH (10:42)
[2021-08-23 02:47] LABS: Vancomycin, Trough 12.7 ug/mL
[2021-08-23] MEDS ORDERED: Vancomycin 1 GM in Premix Bag 1 BAG IVPB SCH (04:00)
[2021-08-23] MEDS: Sodium Chloride 0.45% 1,000 ML IV SCH ×2 (04:35→14:48)
[2021-08-23] MEDS: Vancomycin HCl 750 MG in Sodium Chloride 0.9% 250 ML 250 ML IVPB SCH (06:37)
[2021-08-23] MEDS: MEROPENEM 1 GM/50 ML 1 GM in Premix Bag 1 BAG IVPB SCH (07:27)
[2021-08-23] MEDS: Pantoprazole 40 MG GRANULES PACKET PO SCH (08:33)
[2021-08-23] MEDS: Lisinopril 2.5 MG TAB PO SCH (08:33)
[2021-08-23] MEDS: Carvedilol 3.125 MG TAB PO SCH ×2 (08:39→17:05)
[2021-08-23] MEDS: Enoxaparin Sodium 30 MG/0.3 ML SYRINGE SC SCH (08:39)
[2021-08-23 12:49] LABS: #Basophils 0.1 thou/uL (0.0-0.2); #Eosinphils 0.6 thou/uL (0.0-0.7); #Lymphocytes 2.4 thou/uL (1.20-3.40); #Monocytes 1.1 thou/uL (0.11-0.59); #Neutrophils 9.8 thou/uL (1.40-6.50); %Basophils 0.5 % (0.0-1.0); %Eosinophils 4.6 % (0.0-10.0); %Lymphocytes 16.9 % (21.0-51.0); %Monocytes 7.9 % (0.0-10.0); %Neutrophils 70.1 % (42.0-75.0); Hemoglobin 14.9 g/dL (14.0-18.0); Mean Corpuscular HGB CONC 33.4 g/dL (32.0-36.0); Mean Corpuscular Hemoglobin 30.1 pg (27.0-31.0); Mean Corpuscular Volume 89.9 fL (78.0-98.0); Mean Platelet Volume 7.2 fL (7.4-10.4); Platelet Count 395 thou/uL (130-400); RBC Distribution Width 12.3 % (11.5-14.5); Red Blood Cell (RBC) Count 4.97 mill/uL (4.70-6.10)
[2021-08-23 13:14] LABS: Anion Gap 13 mmol/L (10-20); BUN (Urea Nitrogen) 22 mg/dL (8.4-25.7); Calc. Creatinine Clearance 52 mL/min (70-130); Calcium 8.8 mg/dL (7.8-10.44); Carbon Dioxide 30 mmol/L (22-29); Chloride 107 mmol/L (98-107); Glucose 109 mg/dL (70-105); Potassium 3.4 mmol/L (3.5-5.1); Sodium 147 mmol/L (136-145)
[2021-08-24] MEDS: Sodium Chloride 0.45% 1,000 ML IV SCH ×2 (01:07→13:37)
[2021-08-24] MEDS: Pantoprazole 40 MG GRANULES PACKET PO SCH (08:31)
[2021-08-24] MEDS: Carvedilol 3.125 MG TAB PO SCH ×2 (08:31→18:29)
[2021-08-24] MEDS: Lisinopril 2.5 MG TAB PO SCH (08:31)
[2021-08-24] MEDS: Enoxaparin Sodium 30 MG/0.3 ML SYRINGE SC SCH (08:31)
[2021-08-25 00:41] LABS: SARS-CoV-2 PCR by NAA Not Detected (NotDetected)
[2021-08-25] MEDS: Pantoprazole 40 MG GRANULES PACKET PO SCH (09:26)
[2021-08-25] MEDS: Lisinopril 2.5 MG TAB PO SCH (09:27)
[2021-08-25] MEDS: Carvedilol 3.125 MG TAB PO SCH ×2 (09:27→17:15)
[2021-08-25] MEDS: Enoxaparin Sodium 40 MG/0.4 ML SYRINGE SC SCH (10:19)
[2021-08-26] MEDS: Ziprasidone 20 MG VIAL IM PRN (01:27)
[2021-08-26] MEDS: Carvedilol 3.125 MG TAB PO SCH ×2 (08:54→19:23)
[2021-08-26] MEDS: Lisinopril 2.5 MG TAB PO SCH (08:54)
[2021-08-26] MEDS: Enoxaparin Sodium 40 MG/0.4 ML SYRINGE SC SCH (08:54)
[2021-08-26] MEDS: Pantoprazole 40 MG GRANULES PACKET PO SCH (08:54)
[2021-08-27] MEDS: Carvedilol 3.125 MG TAB PO SCH ×2 (08:54→17:50)
[2021-08-27] MEDS: Pantoprazole 40 MG GRANULES PACKET PO SCH (08:54)
[2021-08-27] MEDS: Lisinopril 2.5 MG TAB PO SCH (08:54)
[2021-08-27] MEDS: Enoxaparin Sodium 40 MG/0.4 ML SYRINGE SC SCH (09:00)
[2021-08-27] MEDS: Sterile Water 10 ML VIAL FS PRN (09:03)
[2021-08-27] MEDS: Ziprasidone 20 MG VIAL IM PRN (09:03)
[2021-08-28] MEDS: Ziprasidone 20 MG VIAL IM PRN (04:01)
[2021-08-28] MEDS: Sterile Water 10 ML VIAL FS PRN (04:03)
[2021-08-28 06:22] LABS: Anion Gap 14 mmol/L (10-20); BUN (Urea Nitrogen) 31 mg/dL (8.4-25.7); Calc. Creatinine Clearance 42 mL/min (70-130); Calcium 8.8 mg/dL (7.8-10.44); Carbon Dioxide 29 mmol/L (22-29); Chloride 104 mmol/L (98-107); Glucose 118 mg/dL (70-105); Potassium 3.2 mmol/L (3.5-5.1); Sodium 144 mmol/L (136-145)
[2021-08-28] MEDS: Carvedilol 3.125 MG TAB PO SCH ×2 (09:01→17:34)
[2021-08-28] MEDS: Enoxaparin Sodium 40 MG/0.4 ML SYRINGE SC SCH (09:02)
[2021-08-28] MEDS: Pantoprazole 40 MG GRANULES PACKET PO SCH (09:02)
[2021-08-28] MEDS: Lisinopril 2.5 MG TAB PO SCH (09:02)
[2021-08-29] MEDS: Carvedilol 3.125 MG TAB PO SCH ×2 (08:33→16:37)
[2021-08-29] MEDS: Pantoprazole 40 MG GRANULES PACKET PO SCH (08:33)
[2021-08-29] MEDS: Lisinopril 2.5 MG TAB PO SCH (08:33)
[2021-08-29] MEDS: Enoxaparin Sodium 30 MG/0.3 ML SYRINGE SC SCH (08:33)
[2021-08-29 16:15] LABS: #Basophils 0.1 thou/uL (0.0-0.2); #Eosinphils 0.6 thou/uL (0.0-0.7); #Lymphocytes 1.7 thou/uL (1.20-3.40); #Monocytes 1.1 thou/uL (0.11-0.59); #Neutrophils 15.9 thou/uL (1.40-6.50); %Basophils 0.4 % (0.0-1.0); %Eosinophils 3.1 % (0.0-10.0); %Lymphocytes 8.7 % (21.0-51.0); %Monocytes 5.8 % (0.0-10.0); Hemoglobin 14.2 g/dL (14.0-18.0); Mean Corpuscular HGB CONC 34.3 g/dL (32.0-36.0); Mean Corpuscular Volume 90.5 fL (78.0-98.0); Mean Platelet Volume 7.7 fL (7.4-10.4); Platelet Count 266 thou/uL (130-400); RBC Distribution Width 12.4 % (11.5-14.5); Red Blood Cell (RBC) Count 4.57 mill/uL (4.70-6.10); White Blood Cell (WBC) Count 19.4 thou/uL (4.8-10.8)
[2021-08-29 16:37] LABS: Anion Gap 15 mmol/L (10-20); BUN (Urea Nitrogen) 33 mg/dL (8.4-25.7); Calc. Creatinine Clearance 49 mL/min (70-130); Calcium 8.7 mg/dL (7.8-10.44); Carbon Dioxide 28 mmol/L (22-29); Chloride 104 mmol/L (98-107); Glucose 129 mg/dL (70-105); Potassium 3.5 mmol/L (3.5-5.1); Sodium 143 mmol/L (136-145)
[2021-08-30 07:04] LABS: #Basophils 0.1 thou/uL (0.0-0.2); #Eosinphils 0.7 thou/uL (0.0-0.7); #Lymphocytes 1.7 thou/uL (1.20-3.40); #Neutrophils 11.6 thou/uL (1.40-6.50); %Basophils 0.3 % (0.0-1.0); %Eosinophils 4.6 % (0.0-10.0); %Lymphocytes 11.3 % (21.0-51.0); %Monocytes 6.8 % (0.0-10.0); Hemoglobin 13.5 g/dL (14.0-18.0); Mean Corpuscular HGB CONC 32.9 g/dL (32.0-36.0); Mean Corpuscular Hemoglobin 29.6 pg (27.0-31.0); Mean Platelet Volume 7.9 fL (7.4-10.4); Platelet Count 268 thou/uL (130-400); RBC Distribution Width 12.2 % (11.5-14.5); Red Blood Cell (RBC) Count 4.54 mill/uL (4.70-6.10); White Blood Cell (WBC) Count 15.1 thou/uL (4.8-10.8)
[2021-08-30 07:27] LABS: Anion Gap 12 mmol/L (10-20); BUN (Urea Nitrogen) 30 mg/dL (8.4-25.7); Calc. Creatinine Clearance 48 mL/min (70-130); Calcium 8.8 mg/dL (7.8-10.44); Carbon Dioxide 32 mmol/L (22-29); Chloride 102 mmol/L (98-107); Glucose 101 mg/dL (70-105); Potassium 3.3 mmol/L (3.5-5.1); Sodium 143 mmol/L (136-145)
[2021-08-30] MEDS: Enoxaparin Sodium 30 MG/0.3 ML SYRINGE SC SCH (07:54)
[2021-08-30] MEDS: Lisinopril 2.5 MG TAB PO SCH (07:55)
[2021-08-30] MEDS: Pantoprazole 40 MG GRANULES PACKET PO SCH (07:55)
[2021-08-30] MEDS: Carvedilol 3.125 MG TAB PO SCH ×2 (08:08→16:55)
[2021-08-31 07:52] LABS: #Basophils 0.1 thou/uL (0.0-0.2); #Eosinphils 0.8 thou/uL (0.0-0.7); #Lymphocytes 1.8 thou/uL (1.20-3.40); #Monocytes 1.2 thou/uL (0.11-0.59); #Neutrophils 9.4 thou/uL (1.40-6.50); %Basophils 0.6 % (0.0-1.0); %Eosinophils 5.9 % (0.0-10.0); %Lymphocytes 13.6 % (21.0-51.0); %Monocytes 8.7 % (0.0-10.0); %Neutrophils 71.2 % (42.0-75.0); Hemoglobin 13.3 g/dL (14.0-18.0); Mean Corpuscular HGB CONC 32.1 g/dL (32.0-36.0); Mean Corpuscular Hemoglobin 29.4 pg (27.0-31.0); Mean Corpuscular Volume 91.4 fL (78.0-98.0); Mean Platelet Volume 8.1 fL (7.4-10.4); Platelet Count 245 thou/uL (130-400); RBC Distribution Width 12.3 % (11.5-14.5); Red Blood Cell (RBC) Count 4.53 mill/uL (4.70-6.10); White Blood Cell (WBC) Count 13.2 thou/uL (4.8-10.8)
[2021-08-31 08:04] LABS: Anion Gap 16 mmol/L (10-20); BUN (Urea Nitrogen) 22 mg/dL (8.4-25.7); Calc. Creatinine Clearance 53 mL/min (70-130); Calcium 8.3 mg/dL (7.8-10.44); Carbon Dioxide 26 mmol/L (22-29); Chloride 103 mmol/L (98-107); Glucose 85 mg/dL (70-105); Potassium 3.8 mmol/L (3.5-5.1); Sodium 141 mmol/L (136-145)
[2021-08-31] MEDS: Carvedilol 3.125 MG TAB PO SCH (08:28)
[2021-08-31] MEDS: Pantoprazole 40 MG GRANULES PACKET PO SCH (08:28)
[2021-08-31] MEDS: Lisinopril 2.5 MG TAB PO SCH (08:28)
[2021-08-31] MEDS: Enoxaparin Sodium 30 MG/0.3 ML SYRINGE SC SCH (08:30)
[2021-08-31 09:13] VITALS: BP 118/72; TEMP 97.8
== END 2021-08-31 16:28 | DRG 280 ==
LOC: ERS 23:38 → CCL 08-10 00:46 → ERHOLD 08-10 01:05 → CCU 08-10 01:50 → T4-A 08-12 10:41
PROVIDERS: ADMIT Internal Medicine Cardiovascular Disease; ATTEND Internal Medicine
PROC: 3E033XZ Introduction of Vasopressor into Peripheral Vein, Percutaneous Approach (ICD-10-PCS; principal; 2021-08-10)
PROC: 0D9670Z Drainage of Stomach with Drainage Device, Via Natural or Artificial Opening (ICD-10-PCS; 2021-08-10)
PROC: 5A1935Z Respiratory Ventilation, Less than 24 Consecutive Hours (ICD-10-PCS; 2021-08-10)
PROC: 0BH17EZ Insertion of Endotracheal Airway into Trachea, Via Natural or Artificial Opening (ICD-10-PCS; 2021-08-10)
PROC: 5A12012 Performance of Cardiac Output, Single, Manual (ICD-10-PCS; 2021-08-10)
DX: I49.01 Ventricular fibrillation (principal); I21.29 ST elevation (STEMI) myocardial infarction involving other sites; J96.01 Acute respiratory failure with hypoxia; E87.2 Acidosis; N17.9 Acute kidney failure, unspecified; I50.22 Chronic systolic (congestive) heart failure; G93.1 Anoxic brain damage, not elsewhere classified; E46 Unspecified protein-calorie malnutrition; Z68.1 Body mass index [BMI] 19.9 or less, adult; E87.0 Hyperosmolality and hypernatremia; F15.10 Other stimulant abuse, uncomplicated; Z20.822 Contact with and (suspected) exposure to COVID-19; I46.2 Cardiac arrest due to underlying cardiac condition; Z66 Do not resuscitate; F12.10 Cannabis abuse, uncomplicated; F17.210 Nicotine dependence, cigarettes, uncomplicated; I25.10 Atherosclerotic heart disease of native coronary artery without angina pectoris; E78.00 Pure hypercholesterolemia, unspecified; I25.5 Ischemic cardiomyopathy; R74.01 Elevation of levels of liver transaminase levels; N18.30 Chronic kidney disease, stage 3 unspecified; D72.829 Elevated white blood cell count, unspecified; R13.10 Dysphagia, unspecified; R45.6 Violent behavior; E87.6 Hypokalemia; Z89.511 Acquired absence of right leg below knee; I25.2 Old myocardial infarction; Z78.1 Physical restraint status; Z95.5 Presence of coronary angioplasty implant and graft; Z90.49 Acquired absence of other specified parts of digestive tract; Z98.890 Other specified postprocedural states; Z91.14 Patient's other noncompliance with medication regimen
CPT/HCPCS: 31500; 36415; 36416; 36600; 51702; 71045; 80048; 80053; 80061; 80076; 80202; 80306; 81001; 81003; 81015; 82550; 82553; 82805; 83605; 83735; 84100; 84145; 84484; 85025; 85610; 85730; 86140; 87040; 87086; 87149; 93005; 93010; 93306; 94002; 94003; 96365; 96368; 96374; 96376; C9113; J0360; J0692; J0696; J1630; J1644; J1650; J2001; J2060; J2185; J2270; J2405; J2704; J3370; J3486; J3490; J7050; U0002; U0003; U0005

== ENCOUNTER 2021-10-10 18:53 | Inpatient (IN) | payer SELFPAY ==
[2021-10-10 19:51] LABS: #Basophils 0.1 thou/uL (0.0-0.2); #Monocytes 1.2 thou/uL (0.11-0.59); #Neutrophils 4.7 thou/uL (1.40-6.50); %Basophils 0.7 % (0.0-1.0); %Eosinophils 11.3 % (0.0-10.0); %Lymphocytes 22.4 % (21.0-51.0); %Neutrophils 52.6 % (42.0-75.0); Hemoglobin 11.8 g/dL (14.0-18.0); Mean Corpuscular HGB CONC 33.6 g/dL (32.0-36.0); Mean Corpuscular Hemoglobin 31.1 pg (27.0-31.0); Mean Corpuscular Volume 92.5 fL (78.0-98.0); Mean Platelet Volume 6.8 fL (7.4-10.4); Platelet Count 199 thou/uL (130-400); RBC Distribution Width 13.3 % (11.5-14.5); Red Blood Cell (RBC) Count 3.79 mill/uL (4.70-6.10)
[2021-10-10 20:17] LABS: ALT (SGPT) 7 U/L (8-55); AST (SGOT) 10 U/L (5-34); Albumin 3.5 g/dL (3.5-5.0); Alkaline Phosphatase 68 U/L (40-110); Anion Gap 10 mmol/L (10-20); BUN (Urea Nitrogen) 20 mg/dL (8.4-25.7); Bilirubin, Total Less than 0.2 mg/dL (0.2-1.2); CK (CPK) 33 U/L (30-200); Calc. Creatinine Clearance 0 mL/min (70-130); Calcium 8.8 mg/dL (7.8-10.44); Carbon Dioxide 27 mmol/L (22-29); Chloride 107 mmol/L (98-107); Globulin 3.1 g/dL (2.4-3.5); Glucose 83 mg/dL (70-105); Lipase 12 U/L (8-78); Potassium 4.1 mmol/L (3.5-5.1); Protein, Total 6.6 g/dL (6.0-8.3); Sodium 140 mmol/L (136-145)
[2021-10-10 20:25] LABS: Bacteria/HPF None Seen HPF (None Seen); Bilirubin Negative (Negative); Blood, Urine Negative (Negative); Clarity Clear (Clear); Glucose, Urine (Dipstick) Normal (Negative); Ketone, Urine Negative (Negative); Leukocyte 250 Leu/uL (Negative); Mucous/LPF 1+ LPF (<2+); Nitrite Negative (Negative); Protein, Urine (Dipstick) 20 mg/dL (Neg-Trace); RBC/HPF 0-3 HPF (0-3); Renal Epithelial 0-3 HPF (None Seen); Specific Gravity, Urine 1.028 (1.002-1.036); Squamous Epithelial None Seen HPF (0-3); Urobilinogen Normal mg/dL (Less than 2); WBC/HPF Greater than 50 HPF (0-3); pH, Urine 6.5 (5.0-9.0)
[2021-10-10] MEDS ORDERED: cefTRIAXone\\ROCEPHIN 2 GM VIAL ONE (21:22)
[2021-10-10 21:29] LABS: Acetaminophen Less than 6.0 mcg/mL (10.0-30.0); Alcohol Less than 10 mg/dL (Less than 10); Salicylate Less than 8.0 mg/dL (15.0-30.0)
[2021-10-10 21:37] LABS: Amphetamine Detected (NotDetected); Barbiturates Screen Not Detected (NotDetected); Benzodiazepine Screen Not Detected (NotDetected); Cocaine Metabolite Screen Not Detected (NotDetected); Methadone Not Detected (NotDetected); Methamphetamine Detected (NotDetected); Opiate Screen Not Detected (NotDetected); Oxycodone Screen Not Detected (NotDetected); Phencyclidine (PCP) Not Detected (NotDetected); THC/Cannabinoid Screen Not Detected (NotDetected); Tricyclic Screen Detected (NotDetected)
[2021-10-10] MEDS ORDERED: Ondansetron PF 4 MG/2 ML Vial IVP PRN (22:21)
[2021-10-10] MEDS ORDERED: Nitroglycerin 0.4 MG TAB (25 Tab Bottle) SL PRN (22:28)
[2021-10-10 23:49] LABS: Troponin I 0.022 ng/mL (< 0.028)
[2021-10-11 01:40] LABS: #Basophils 0.1 thou/uL (0.0-0.2); #Eosinphils 1.2 thou/uL (0.0-0.7); #Lymphocytes 2.3 thou/uL (1.20-3.40); #Neutrophils 4.1 thou/uL (1.40-6.50); %Basophils 0.8 % (0.0-1.0); %Eosinophils 14.2 % (0.0-10.0); %Lymphocytes 26.6 % (21.0-51.0); %Monocytes 10.9 % (0.0-10.0); %Neutrophils 47.4 % (42.0-75.0); Hemoglobin 11.1 g/dL (14.0-18.0); Mean Corpuscular HGB CONC 32.6 g/dL (32.0-36.0); Mean Corpuscular Hemoglobin 30.4 pg (27.0-31.0); Mean Corpuscular Volume 93.3 fL (78.0-98.0); Mean Platelet Volume 6.4 fL (7.4-10.4); Platelet Count 178 thou/uL (130-400); RBC Distribution Width 13.4 % (11.5-14.5); Red Blood Cell (RBC) Count 3.66 mill/uL (4.70-6.10); White Blood Cell (WBC) Count 8.7 thou/uL (4.8-10.8)
[2021-10-11 02:04] LABS: Anion Gap 10 mmol/L (10-20); BUN (Urea Nitrogen) 22 mg/dL (8.4-25.7); Calc. Creatinine Clearance 54 mL/min (70-130); Calcium 8.9 mg/dL (7.8-10.44); Carbon Dioxide 27 mmol/L (22-29); Chloride 108 mmol/L (98-107); Glucose 106 mg/dL (70-105); Potassium 4.3 mmol/L (3.5-5.1); Sodium 141 mmol/L (136-145)
[2021-10-11 02:05] LABS: Troponin I 0.018 ng/mL (< 0.028)
[2021-10-11] MEDS ORDERED: Sodium Chloride 0.9% 500 ML IV SCH (02:15)
[2021-10-11 05:52] LABS: Magnesium 1.8 mg/dL (1.6-2.6)
[2021-10-11] MEDS: Aspirin 81 mg Enteric Coated Tablet PO SCH (09:08)
[2021-10-11] MEDS: Heparin 5,000 UNITS/ML VIAL SC SCH ×3 (09:08→20:53)
[2021-10-11 12:54] LABS: SARS-CoV-2 PCR by NAA Not Detected (NotDetected)
[2021-10-11] MEDS: Atorvastatin Calcium 40 MG TAB PO SCH (20:52)
[2021-10-12 06:22] LABS: #Basophils 0.1 thou/uL (0.0-0.2); #Lymphocytes 1.9 thou/uL (1.20-3.40); #Neutrophils 3.6 thou/uL (1.40-6.50); %Basophils 0.8 % (0.0-1.0); %Eosinophils 12.8 % (0.0-10.0); %Lymphocytes 25.8 % (21.0-51.0); %Monocytes 12.8 % (0.0-10.0); %Neutrophils 47.9 % (42.0-75.0); Hemoglobin 12.1 g/dL (14.0-18.0); Mean Corpuscular HGB CONC 33.3 g/dL (32.0-36.0); Mean Corpuscular Hemoglobin 30.5 pg (27.0-31.0); Mean Corpuscular Volume 91.5 fL (78.0-98.0); Mean Platelet Volume 6.6 fL (7.4-10.4); Platelet Count 191 thou/uL (130-400); RBC Distribution Width 13.1 % (11.5-14.5); Red Blood Cell (RBC) Count 3.98 mill/uL (4.70-6.10); White Blood Cell (WBC) Count 7.5 thou/uL (4.8-10.8)
[2021-10-12 06:45] LABS: Anion Gap 8 mmol/L (10-20); BUN (Urea Nitrogen) 20 mg/dL (8.4-25.7); Calc. Creatinine Clearance 58 mL/min (70-130); Calcium 9.2 mg/dL (7.8-10.44); Carbon Dioxide 29 mmol/L (22-29); Chloride 105 mmol/L (98-107); Glucose 123 mg/dL (70-105); Magnesium 1.8 mg/dL (1.6-2.6); Sodium 138 mmol/L (136-145)
[2021-10-12] MEDS: Heparin 5,000 UNITS/ML VIAL SC SCH ×3 (08:56→22:02)
[2021-10-12] MEDS: Carvedilol 3.125 MG TAB PO SCH ×2 (08:57→17:45)
[2021-10-12] MEDS: Aspirin 81 mg Enteric Coated Tablet PO SCH (08:57)
[2021-10-12] MEDS ORDERED: Lisinopril 2.5 MG TAB PO SCH (09:00)
[2021-10-12] MEDS: Atorvastatin Calcium 40 MG TAB PO SCH (21:59)
[2021-10-13 07:52] LABS: Anion Gap 11 mmol/L (10-20); BUN (Urea Nitrogen) 24 mg/dL (8.4-25.7); Calc. Creatinine Clearance 54 mL/min (70-130); Calcium 9.5 mg/dL (7.8-10.44); Carbon Dioxide 29 mmol/L (22-29); Chloride 105 mmol/L (98-107); Glucose 108 mg/dL (70-105); Magnesium 1.8 mg/dL (1.6-2.6); Potassium 5.1 mmol/L (3.5-5.1); Sodium 140 mmol/L (136-145)
[2021-10-13] MEDS: Carvedilol 3.125 MG TAB PO SCH ×2 (08:38→17:06)
[2021-10-13] MEDS: Lisinopril 2.5 MG TAB PO SCH (08:40)
[2021-10-13] MEDS: Heparin 5,000 UNITS/ML VIAL SC SCH ×3 (08:40→21:26)
[2021-10-13] MEDS: Aspirin 81 mg Enteric Coated Tablet PO SCH (08:40)
[2021-10-13] MEDS ORDERED: Magnesium 2 GM/50 ML 2 GM in Premix Bag 1 BAG IVPB SCH (16:30)
[2021-10-13] MEDS: hydrOXYzine 25 MG TAB PO PRN (17:06)
[2021-10-13] MEDS: Atorvastatin Calcium 40 MG TAB PO SCH (21:26)
[2021-10-14 08:29] LABS: #Basophils 0.1 thou/uL (0.0-0.2); #Eosinphils 1.1 thou/uL (0.0-0.7); #Neutrophils 4.7 thou/uL (1.40-6.50); %Basophils 0.9 % (0.0-1.0); %Eosinophils 12.5 % (0.0-10.0); %Lymphocytes 22.5 % (21.0-51.0); %Monocytes 11.5 % (0.0-10.0); %Neutrophils 52.6 % (42.0-75.0); Hemoglobin 12.3 g/dL (14.0-18.0); Mean Corpuscular HGB CONC 31.9 g/dL (32.0-36.0); Mean Corpuscular Hemoglobin 29.3 pg (27.0-31.0); Mean Corpuscular Volume 91.8 fL (78.0-98.0); Mean Platelet Volume 7.1 fL (7.4-10.4); Platelet Count 210 thou/uL (130-400); RBC Distribution Width 13.5 % (11.5-14.5); Red Blood Cell (RBC) Count 4.21 mill/uL (4.70-6.10); White Blood Cell (WBC) Count 8.9 thou/uL (4.8-10.8)
[2021-10-14] MEDS: Lisinopril 2.5 MG TAB PO SCH (08:40)
[2021-10-14] MEDS: Carvedilol 3.125 MG TAB PO SCH ×2 (08:40→18:01)
[2021-10-14] MEDS: Heparin 5,000 UNITS/ML VIAL SC SCH ×3 (08:41→21:33)
[2021-10-14] MEDS: Aspirin 81 mg Enteric Coated Tablet PO SCH (08:41)
[2021-10-14 08:43] LABS: Anion Gap 13 mmol/L (10-20); BUN (Urea Nitrogen) 23 mg/dL (8.4-25.7); Calc. Creatinine Clearance 54 mL/min (70-130); Calcium 9.1 mg/dL (7.8-10.44); Carbon Dioxide 26 mmol/L (22-29); Chloride 104 mmol/L (98-107); Glucose 103 mg/dL (70-105); Magnesium 2.2 mg/dL (1.6-2.6); Phosphorus 4.6 mg/dL (2.3-4.7); Potassium 4.5 mmol/L (3.5-5.1); Sodium 138 mmol/L (136-145)
[2021-10-14] MEDS: Gabapentin 300 MG CAP PO SCH ×2 (14:17→21:32)
[2021-10-14] MEDS: Atorvastatin Calcium 40 MG TAB PO SCH (21:32)
[2021-10-14] MEDS: Acetaminophen 325 MG TAB PO PRN (21:32)
[2021-10-15 06:52] LABS: #Basophils 0.1 thou/uL (0.0-0.2); #Eosinphils 1.7 thou/uL (0.0-0.7); #Lymphocytes 2.4 thou/uL (1.20-3.40); #Monocytes 1.1 thou/uL (0.11-0.59); #Neutrophils 5.4 thou/uL (1.40-6.50); %Basophils 0.5 % (0.0-1.0); %Eosinophils 15.7 % (0.0-10.0); %Lymphocytes 22.5 % (21.0-51.0); %Monocytes 10.7 % (0.0-10.0); %Neutrophils 50.7 % (42.0-75.0); Hemoglobin 12.7 g/dL (14.0-18.0); Mean Corpuscular HGB CONC 32.5 g/dL (32.0-36.0); Mean Corpuscular Volume 92.1 fL (78.0-98.0); Mean Platelet Volume 6.9 fL (7.4-10.4); Platelet Count 213 thou/uL (130-400); RBC Distribution Width 13.5 % (11.5-14.5); Red Blood Cell (RBC) Count 4.23 mill/uL (4.70-6.10); White Blood Cell (WBC) Count 10.6 thou/uL (4.8-10.8)
[2021-10-15 07:08] LABS: Anion Gap 11 mmol/L (10-20); BUN (Urea Nitrogen) 28 mg/dL (8.4-25.7); Calc. Creatinine Clearance 45 mL/min (70-130); Calcium 9.5 mg/dL (7.8-10.44); Carbon Dioxide 30 mmol/L (22-29); Chloride 102 mmol/L (98-107); Glucose 104 mg/dL (70-105); Magnesium 2.2 mg/dL (1.6-2.6); Phosphorus 4.8 mg/dL (2.3-4.7); Potassium 4.5 mmol/L (3.5-5.1); Sodium 138 mmol/L (136-145)
[2021-10-15] MEDS: Acetaminophen 325 MG TAB PO PRN ×3 (07:43→18:42)
[2021-10-15] MEDS: Aspirin 81 mg Enteric Coated Tablet PO SCH (07:45)
[2021-10-15] MEDS: Lisinopril 2.5 MG TAB PO SCH (07:45)
[2021-10-15] MEDS: Carvedilol 3.125 MG TAB PO SCH ×2 (07:46→17:07)
[2021-10-15] MEDS: Gabapentin 300 MG CAP PO SCH ×3 (07:46→22:17)
[2021-10-15] MEDS: Heparin 5,000 UNITS/ML VIAL SC SCH ×3 (07:46→22:18)
[2021-10-15] MEDS: Sodium Chloride 0.9% 1,000 ML IV SCH (09:57)
[2021-10-15] MEDS: hydrOXYzine 25 MG TAB PO PRN (17:46)
[2021-10-15] MEDS: Atorvastatin Calcium 40 MG TAB PO SCH (22:17)
[2021-10-16] MEDS: Sodium Chloride 0.9% 1,000 ML IV SCH (04:27)
[2021-10-16] MEDS: Acetaminophen 325 MG TAB PO PRN ×4 (05:41→19:18)
[2021-10-16 06:08] LABS: #Basophils 0.1 thou/uL (0.0-0.2); #Lymphocytes 2.4 thou/uL (1.20-3.40); #Monocytes 1.1 thou/uL (0.11-0.59); #Neutrophils 5.6 thou/uL (1.40-6.50); %Basophils 0.5 % (0.0-1.0); %Eosinophils 18.1 % (0.0-10.0); %Lymphocytes 21.3 % (21.0-51.0); %Monocytes 10.1 % (0.0-10.0); Hemoglobin 11.8 g/dL (14.0-18.0); Mean Corpuscular HGB CONC 33.4 g/dL (32.0-36.0); Mean Corpuscular Hemoglobin 30.8 pg (27.0-31.0); Mean Corpuscular Volume 92.2 fL (78.0-98.0); Mean Platelet Volume 7.1 fL (7.4-10.4); Platelet Count 193 thou/uL (130-400); RBC Distribution Width 13.6 % (11.5-14.5); Red Blood Cell (RBC) Count 3.85 mill/uL (4.70-6.10); White Blood Cell (WBC) Count 11.2 thou/uL (4.8-10.8)
[2021-10-16 06:28] LABS: Anion Gap 14 mmol/L (10-20); BUN (Urea Nitrogen) 28 mg/dL (8.4-25.7); Calc. Creatinine Clearance 54 mL/min (70-130); Calcium 8.9 mg/dL (7.8-10.44); Carbon Dioxide 24 mmol/L (22-29); Chloride 109 mmol/L (98-107); Glucose 113 mg/dL (70-105); Phosphorus 4.2 mg/dL (2.3-4.7); Potassium 4.2 mmol/L (3.5-5.1); Sodium 143 mmol/L (136-145)
[2021-10-16] MEDS: Carvedilol 3.125 MG TAB PO SCH ×2 (08:47→17:36)
[2021-10-16] MEDS: Gabapentin 300 MG CAP PO SCH ×3 (08:47→19:19)
[2021-10-16] MEDS: hydrOXYzine 25 MG TAB PO PRN ×2 (08:47→19:57)
[2021-10-16] MEDS: Heparin 5,000 UNITS/ML VIAL SC SCH ×3 (08:48→19:19)
[2021-10-16] MEDS: Aspirin 81 mg Enteric Coated Tablet PO SCH (08:48)
[2021-10-16] MEDS: Lisinopril 2.5 MG TAB PO SCH (08:48)
[2021-10-16] MEDS: Atorvastatin Calcium 40 MG TAB PO SCH (19:18)
[2021-10-16] MEDS ORDERED: HYDROcodone/Acetaminophen 5/325 mg Tablet PO SCH (21:15)
[2021-10-17] MEDS: Acetaminophen 325 MG TAB PO PRN ×4 (02:13→20:20)
[2021-10-17 06:59] LABS: #Basophils 0.1 thou/uL (0.0-0.2); #Eosinphils 2.1 thou/uL (0.0-0.7); #Lymphocytes 2.7 thou/uL (1.20-3.40); #Monocytes 1.2 thou/uL (0.11-0.59); #Neutrophils 5.4 thou/uL (1.40-6.50); %Basophils 0.5 % (0.0-1.0); %Eosinophils 18.2 % (0.0-10.0); %Lymphocytes 23.5 % (21.0-51.0); %Monocytes 10.8 % (0.0-10.0); Hemoglobin 11.5 g/dL (14.0-18.0); Mean Corpuscular HGB CONC 33.3 g/dL (32.0-36.0); Mean Corpuscular Hemoglobin 30.9 pg (27.0-31.0); Mean Corpuscular Volume 92.8 fL (78.0-98.0); Mean Platelet Volume 7.2 fL (7.4-10.4); Platelet Count 189 thou/uL (130-400); RBC Distribution Width 13.8 % (11.5-14.5); Red Blood Cell (RBC) Count 3.71 mill/uL (4.70-6.10); White Blood Cell (WBC) Count 11.5 thou/uL (4.8-10.8)
[2021-10-17 07:16] LABS: Anion Gap 12 mmol/L (10-20); BUN (Urea Nitrogen) 23 mg/dL (8.4-25.7); Calc. Creatinine Clearance 53 mL/min (70-130); Calcium 9.3 mg/dL (7.8-10.44); Carbon Dioxide 23 mmol/L (22-29); Chloride 108 mmol/L (98-107); Glucose 107 mg/dL (70-105); Magnesium 1.8 mg/dL (1.6-2.6); Phosphorus 4.7 mg/dL (2.3-4.7); Potassium 4.3 mmol/L (3.5-5.1); Sodium 139 mmol/L (136-145)
[2021-10-17] MEDS: Aspirin 81 mg Enteric Coated Tablet PO SCH (08:34)
[2021-10-17] MEDS: Carvedilol 3.125 MG TAB PO SCH ×2 (08:34→17:09)
[2021-10-17] MEDS: Gabapentin 300 MG CAP PO SCH ×3 (08:35→20:21)
[2021-10-17] MEDS: Heparin 5,000 UNITS/ML VIAL SC SCH ×3 (08:35→20:21)
[2021-10-17] MEDS: Lisinopril 2.5 MG TAB PO SCH (08:36)
[2021-10-17 10:32] LABS: Lactic Acid 1.3 mmol/L (0.5-2.2)
[2021-10-17 10:36] LABS: ALT (SGPT) 20 U/L (8-55); AST (SGOT) 14 U/L (5-34); Albumin 3.5 g/dL (3.5-5.0); Alkaline Phosphatase 73 U/L (40-110); Anion Gap 10 mmol/L (10-20); BUN (Urea Nitrogen) 22 mg/dL (8.4-25.7); Bilirubin, Total 0.2 mg/dL (0.2-1.2); Calc. Creatinine Clearance 54 mL/min (70-130); Calcium 9.4 mg/dL (7.8-10.44); Carbon Dioxide 26 mmol/L (22-29); Chloride 107 mmol/L (98-107); Glucose 81 mg/dL (70-105); Lipase 48 U/L (8-78); Potassium 4.2 mmol/L (3.5-5.1); Protein, Total 6.5 g/dL (6.0-8.3); Sodium 139 mmol/L (136-145)
[2021-10-17] MEDS: hydrOXYzine 25 MG TAB PO PRN (20:20)
[2021-10-17] MEDS: Atorvastatin Calcium 40 MG TAB PO SCH (20:20)
[2021-10-18] MEDS: Acetaminophen 325 MG TAB PO PRN (04:57)
[2021-10-18] MEDS: hydrOXYzine 25 MG TAB PO PRN ×2 (04:58→20:07)
[2021-10-18 06:02] LABS: #Basophils 0.1 thou/uL (0.0-0.2); #Eosinphils 2.5 thou/uL (0.0-0.7); #Lymphocytes 2.2 thou/uL (1.20-3.40); #Monocytes 1.1 thou/uL (0.11-0.59); #Neutrophils 5.1 thou/uL (1.40-6.50); %Basophils 0.6 % (0.0-1.0); %Eosinophils 23.3 % (0.0-10.0); %Lymphocytes 19.9 % (21.0-51.0); %Neutrophils 46.3 % (42.0-75.0); Hemoglobin 11.4 g/dL (14.0-18.0); Mean Corpuscular HGB CONC 32.3 g/dL (32.0-36.0); Mean Corpuscular Hemoglobin 29.8 pg (27.0-31.0); Mean Corpuscular Volume 92.2 fL (78.0-98.0); Mean Platelet Volume 7.1 fL (7.4-10.4); Platelet Count 174 thou/uL (130-400); RBC Distribution Width 13.7 % (11.5-14.5); Red Blood Cell (RBC) Count 3.84 mill/uL (4.70-6.10); White Blood Cell (WBC) Count 10.9 thou/uL (4.8-10.8)
[2021-10-18 06:23] LABS: Anion Gap 11 mmol/L (10-20); BUN (Urea Nitrogen) 27 mg/dL (8.4-25.7); Calc. Creatinine Clearance 52 mL/min (70-130); Calcium 9.2 mg/dL (7.8-10.44); Carbon Dioxide 25 mmol/L (22-29); Chloride 109 mmol/L (98-107); Glucose 143 mg/dL (70-105); Magnesium 1.9 mg/dL (1.6-2.6); Phosphorus 4.3 mg/dL (2.3-4.7); Potassium 4.1 mmol/L (3.5-5.1); Sodium 141 mmol/L (136-145)
[2021-10-18] MEDS: Carvedilol 3.125 MG TAB PO SCH ×2 (08:40→17:46)
[2021-10-18] MEDS: Lisinopril 2.5 MG TAB PO SCH (08:51)
[2021-10-18] MEDS: Aspirin 81 mg Enteric Coated Tablet PO SCH (08:51)
[2021-10-18] MEDS: Gabapentin 300 MG CAP PO SCH ×4 (08:52→20:06)
[2021-10-18] MEDS: Heparin 5,000 UNITS/ML VIAL SC SCH ×3 (08:52→20:07)
[2021-10-18] MEDS ORDERED: Transdermal Patch Removal TOP PRN (09:33)
[2021-10-18] MEDS ORDERED: Lisinopril 2.5 MG TAB PO SCH (09:45)
[2021-10-18 14:42] LABS: Troponin I 0.011 ng/mL (< 0.028)
[2021-10-18 16:36] LABS: Troponin I 0.017 ng/mL (< 0.028)
[2021-10-18 19:32] LABS: Troponin I 0.015 ng/mL (< 0.028)
[2021-10-18] MEDS: Atorvastatin Calcium 40 MG TAB PO SCH (20:07)
[2021-10-18] MEDS ORDERED: Lorazepam 2 MG/ML VIAL SLOW IVP SCH (22:15)
[2021-10-18] MEDS: Lidocaine 5% Patch TD PRN (22:31)
[2021-10-19 05:18] LABS: Anion Gap 11 mmol/L (10-20); BUN (Urea Nitrogen) 28 mg/dL (8.4-25.7); Calc. Creatinine Clearance 53 mL/min (70-130); Calcium 9.7 mg/dL (7.8-10.44); Carbon Dioxide 27 mmol/L (22-29); Chloride 106 mmol/L (98-107); Glucose 114 mg/dL (70-105); Potassium 4.3 mmol/L (3.5-5.1); Sodium 140 mmol/L (136-145)
[2021-10-19] MEDS ORDERED: Lorazepam 0.5 MG TAB PO PRN (08:01)
[2021-10-19] MEDS: Lisinopril 2.5 MG TAB PO SCH ×2 (08:48→08:50)
[2021-10-19] MEDS: Gabapentin 300 MG CAP PO SCH ×3 (08:50→20:39)
[2021-10-19] MEDS: Carvedilol 3.125 MG TAB PO SCH ×2 (08:51→16:39)
[2021-10-19] MEDS: Aspirin 81 mg Enteric Coated Tablet PO SCH (08:51)
[2021-10-19] MEDS: hydrOXYzine 25 MG TAB PO PRN ×2 (10:38→16:40)
[2021-10-19] MEDS: Enoxaparin Sodium 40 MG/0.4 ML SYRINGE SC SCH (10:38)
[2021-10-19] MEDS: Atorvastatin Calcium 40 MG TAB PO SCH (20:38)
[2021-10-20] MEDS: Acetaminophen 325 MG TAB PO PRN ×4 (01:33→21:33)
[2021-10-20 05:06] LABS: #Basophils 0.1 thou/uL (0.0-0.2); #Lymphocytes 2.3 thou/uL (1.20-3.40); #Monocytes 1.4 thou/uL (0.11-0.59); %Basophils 0.5 % (0.0-1.0); %Eosinophils 23.3 % (0.0-10.0); %Lymphocytes 18.2 % (21.0-51.0); %Monocytes 11.1 % (0.0-10.0); %Neutrophils 46.9 % (42.0-75.0); Hemoglobin 11.3 g/dL (14.0-18.0); Mean Corpuscular HGB CONC 32.4 g/dL (32.0-36.0); Mean Corpuscular Volume 92.7 fL (78.0-98.0); Mean Platelet Volume 7.4 fL (7.4-10.4); Platelet Count 180 thou/uL (130-400); Red Blood Cell (RBC) Count 3.75 mill/uL (4.70-6.10); White Blood Cell (WBC) Count 12.8 thou/uL (4.8-10.8)
[2021-10-20 05:33] LABS: Anion Gap 9 mmol/L (10-20); BUN (Urea Nitrogen) 28 mg/dL (8.4-25.7); Calc. Creatinine Clearance 53 mL/min (70-130); Calcium 9.1 mg/dL (7.8-10.44); Carbon Dioxide 30 mmol/L (22-29); Chloride 106 mmol/L (98-107); Glucose 118 mg/dL (70-105); Sodium 141 mmol/L (136-145)
[2021-10-20] MEDS: Gabapentin 300 MG CAP PO SCH ×3 (08:32→20:08)
[2021-10-20] MEDS: Aspirin 81 mg Enteric Coated Tablet PO SCH (08:34)
[2021-10-20] MEDS: Enoxaparin Sodium 40 MG/0.4 ML SYRINGE SC SCH (08:35)
[2021-10-20] MEDS: Carvedilol 3.125 MG TAB PO SCH ×2 (08:37→17:53)
[2021-10-20 10:47] LABS: SARS-CoV-2 PCR by NAA Not Detected (NotDetected)
[2021-10-20] MEDS: Atorvastatin Calcium 40 MG TAB PO SCH (20:08)
[2021-10-20] MEDS: Lorazepam 1 MG TAB PO PRN (20:15)
[2021-10-21 04:42] LABS: Anion Gap 12 mmol/L (10-20); BUN (Urea Nitrogen) 27 mg/dL (8.4-25.7); Calc. Creatinine Clearance 63 mL/min (70-130); Calcium 9.3 mg/dL (7.8-10.44); Carbon Dioxide 23 mmol/L (22-29); Chloride 109 mmol/L (98-107); Glucose 125 mg/dL (70-105); Potassium 4.3 mmol/L (3.5-5.1); Sodium 140 mmol/L (136-145)
[2021-10-21] MEDS: Acetaminophen 325 MG TAB PO PRN ×2 (05:09→21:37)
[2021-10-21] MEDS: hydrOXYzine 25 MG TAB PO PRN ×2 (05:09→20:42)
[2021-10-21] MEDS: Aspirin 81 mg Enteric Coated Tablet PO SCH (08:52)
[2021-10-21] MEDS: Lisinopril 2.5 MG TAB PO SCH (08:52)
[2021-10-21] MEDS: Gabapentin 300 MG CAP PO SCH ×3 (08:52→20:41)
[2021-10-21] MEDS: Enoxaparin Sodium 40 MG/0.4 ML SYRINGE SC SCH (08:52)
[2021-10-21] MEDS: Carvedilol 3.125 MG TAB PO SCH ×2 (08:53→16:56)
[2021-10-21] MEDS: Lorazepam 1 MG TAB PO PRN ×2 (12:27→21:36)
[2021-10-21] MEDS: Atorvastatin Calcium 40 MG TAB PO SCH (20:41)
[2021-10-22] MEDS: Carvedilol 3.125 MG TAB PO SCH ×2 (09:18→17:02)
[2021-10-22] MEDS: Enoxaparin Sodium 40 MG/0.4 ML SYRINGE SC SCH (09:19)
[2021-10-22] MEDS: Lisinopril 2.5 MG TAB PO SCH (09:19)
[2021-10-22] MEDS: Gabapentin 300 MG CAP PO SCH ×4 (09:20→20:50)
[2021-10-22] MEDS: Aspirin 81 mg Enteric Coated Tablet PO SCH (09:20)
[2021-10-22 09:38] LABS: #Basophils 0.1 thou/uL (0.0-0.2); #Eosinphils 2.2 thou/uL (0.0-0.7); #Lymphocytes 2.1 thou/uL (1.20-3.40); #Monocytes 1.1 thou/uL (0.11-0.59); #Neutrophils 5.7 thou/uL (1.40-6.50); %Basophils 0.7 % (0.0-1.0); %Eosinophils 19.8 % (0.0-10.0); %Lymphocytes 18.4 % (21.0-51.0); %Monocytes 10.1 % (0.0-10.0); %Neutrophils 50.9 % (42.0-75.0); Hemoglobin 11.9 g/dL (14.0-18.0); Mean Corpuscular HGB CONC 33.6 g/dL (32.0-36.0); Mean Corpuscular Hemoglobin 30.8 pg (27.0-31.0); Mean Corpuscular Volume 91.8 fL (78.0-98.0); Mean Platelet Volume 6.8 fL (7.4-10.4); Platelet Count 185 thou/uL (130-400); RBC Distribution Width 14.1 % (11.5-14.5); Red Blood Cell (RBC) Count 3.85 mill/uL (4.70-6.10); White Blood Cell (WBC) Count 11.2 thou/uL (4.8-10.8)
[2021-10-22 10:03] LABS: Phosphorus 4.3 mg/dL (2.3-4.7)
[2021-10-22 10:04] LABS: Anion Gap 11 mmol/L (10-20); BUN (Urea Nitrogen) 32 mg/dL (8.4-25.7); Calc. Creatinine Clearance 60 mL/min (70-130); Calcium 9.2 mg/dL (7.8-10.44); Carbon Dioxide 26 mmol/L (22-29); Chloride 106 mmol/L (98-107); Glucose 110 mg/dL (70-105); Magnesium 1.9 mg/dL (1.6-2.6); Potassium 4.1 mmol/L (3.5-5.1); Sodium 139 mmol/L (136-145)
[2021-10-22] MEDS: Acetaminophen 325 MG TAB PO PRN ×2 (15:26→22:43)
[2021-10-22] MEDS: Atorvastatin Calcium 40 MG TAB PO SCH (20:50)
[2021-10-22] MEDS: hydrOXYzine 25 MG TAB PO PRN (20:52)
[2021-10-22] MEDS: Lorazepam 1 MG TAB PO PRN (22:44)
[2021-10-23] MEDS: Aspirin 81 mg Enteric Coated Tablet PO SCH (08:31)
[2021-10-23] MEDS: Gabapentin 300 MG CAP PO SCH ×3 (08:31→20:42)
[2021-10-23] MEDS: Enoxaparin Sodium 40 MG/0.4 ML SYRINGE SC SCH (08:31)
[2021-10-23] MEDS: Acetaminophen 325 MG TAB PO PRN ×2 (09:10→15:29)
[2021-10-23] MEDS: Lorazepam 1 MG TAB PO PRN ×3 (09:11→20:41)
[2021-10-23 09:54] LABS: Lactic Acid 1.1 mmol/L (0.5-2.2)
[2021-10-23 10:13] LABS: Troponin I 0.025 ng/mL (< 0.028)
[2021-10-23 20:19] LABS: Troponin I 0.017 ng/mL (< 0.028)
[2021-10-23] MEDS: Atorvastatin Calcium 40 MG TAB PO SCH (20:41)
[2021-10-23] MEDS: hydrOXYzine 25 MG TAB PO PRN (20:41)
[2021-10-24] MEDS: Gabapentin 300 MG CAP PO SCH ×3 (08:38→21:10)
[2021-10-24] MEDS: Aspirin 81 mg Enteric Coated Tablet PO SCH (08:38)
[2021-10-24] MEDS: Enoxaparin Sodium 40 MG/0.4 ML SYRINGE SC SCH (08:38)
[2021-10-24] MEDS: Lorazepam 1 MG TAB PO PRN ×2 (13:37→21:09)
[2021-10-24] MEDS: hydrOXYzine 25 MG TAB PO PRN (13:38)
[2021-10-24] MEDS: Atorvastatin Calcium 40 MG TAB PO SCH (21:10)
[2021-10-24] MEDS: Acetaminophen 325 MG TAB PO PRN (21:11)
[2021-10-25] MEDS: Lorazepam 1 MG TAB PO PRN ×3 (10:20→22:11)
[2021-10-25] MEDS: Aspirin 81 mg Enteric Coated Tablet PO SCH (10:21)
[2021-10-25] MEDS: Gabapentin 300 MG CAP PO SCH ×3 (10:21→22:11)
[2021-10-25] MEDS: Enoxaparin Sodium 40 MG/0.4 ML SYRINGE SC SCH (10:22)
[2021-10-25] MEDS ORDERED: Haloperidol Lactate 5 MG/ML VIAL SLOW IVP SCH (11:45)
[2021-10-25] MEDS: hydrOXYzine 25 MG TAB PO PRN ×2 (16:24→22:11)
[2021-10-25] MEDS: Atorvastatin Calcium 40 MG TAB PO SCH (22:11)
[2021-10-26] MEDS: Aspirin 81 mg Enteric Coated Tablet PO SCH (08:52)
[2021-10-26] MEDS: Lorazepam 1 MG TAB PO PRN ×2 (08:52→22:02)
[2021-10-26] MEDS: hydrOXYzine 25 MG TAB PO PRN ×2 (08:52→22:02)
[2021-10-26] MEDS: Enoxaparin Sodium 40 MG/0.4 ML SYRINGE SC SCH (08:53)
[2021-10-26] MEDS: Gabapentin 300 MG CAP PO SCH ×3 (08:53→22:03)
[2021-10-26] MEDS: Atorvastatin Calcium 40 MG TAB PO SCH (22:02)
[2021-10-27] MEDS: Lorazepam 1 MG TAB PO PRN ×2 (06:31→19:41)
[2021-10-27] MEDS: hydrOXYzine 25 MG TAB PO PRN (06:31)
[2021-10-27] MEDS: Gabapentin 300 MG CAP PO SCH ×3 (09:01→19:41)
[2021-10-27] MEDS: Aspirin 81 mg Enteric Coated Tablet PO SCH (09:01)
[2021-10-27] MEDS: Enoxaparin Sodium 40 MG/0.4 ML SYRINGE SC SCH (09:02)
[2021-10-27] MEDS: Acetaminophen 325 MG TAB PO PRN (19:41)
[2021-10-27] MEDS: Atorvastatin Calcium 40 MG TAB PO SCH (19:41)
[2021-10-28] MEDS: Acetaminophen 325 MG TAB PO PRN ×2 (03:39→19:30)
[2021-10-28] MEDS: Lorazepam 1 MG TAB PO PRN ×3 (03:39→22:33)
[2021-10-28] MEDS: hydrOXYzine 25 MG TAB PO PRN ×3 (03:40→22:33)
[2021-10-28 07:25] LABS: #Eosinphils 2.5 thou/uL (0.0-0.7); #Lymphocytes 2.3 thou/uL (1.20-3.40); #Monocytes 0.8 thou/uL (0.11-0.59); %Basophils 0.4 % (0.0-1.0); %Eosinophils 23.2 % (0.0-10.0); %Lymphocytes 21.5 % (21.0-51.0); %Monocytes 7.5 % (0.0-10.0); %Neutrophils 47.3 % (42.0-75.0); Hemoglobin 12.4 g/dL (14.0-18.0); Mean Corpuscular HGB CONC 32.6 g/dL (32.0-36.0); Mean Corpuscular Volume 92.1 fL (78.0-98.0); Mean Platelet Volume 6.5 fL (7.4-10.4); Platelet Count 234 thou/uL (130-400); RBC Distribution Width 14.2 % (11.5-14.5); Red Blood Cell (RBC) Count 4.13 mill/uL (4.70-6.10); White Blood Cell (WBC) Count 10.6 thou/uL (4.8-10.8)
[2021-10-28 07:49] LABS: ALT (SGPT) 21 U/L (8-55); AST (SGOT) 12 U/L (5-34); Albumin 3.9 g/dL (3.5-5.0); Alkaline Phosphatase 75 U/L (40-110); Anion Gap 11 mmol/L (10-20); BUN (Urea Nitrogen) 30 mg/dL (8.4-25.7); Bilirubin, Total 0.4 mg/dL (0.2-1.2); Calc. Creatinine Clearance 53 mL/min (70-130); Calcium 9.7 mg/dL (7.8-10.44); Carbon Dioxide 26 mmol/L (22-29); Chloride 105 mmol/L (98-107); Globulin 3.5 g/dL (2.4-3.5); Glucose 106 mg/dL (70-105); Magnesium 2.1 mg/dL (1.6-2.6); Phosphorus 4.6 mg/dL (2.3-4.7); Potassium 4.2 mmol/L (3.5-5.1); Protein, Total 7.4 g/dL (6.0-8.3); Sodium 138 mmol/L (136-145)
[2021-10-28] MEDS: Gabapentin 300 MG CAP PO SCH ×3 (08:48→19:30)
[2021-10-28] MEDS: Lisinopril 2.5 MG TAB PO SCH (08:48)
[2021-10-28] MEDS: Aspirin 81 mg Enteric Coated Tablet PO SCH (08:48)
[2021-10-28] MEDS: Enoxaparin Sodium 40 MG/0.4 ML SYRINGE SC SCH (08:48)
[2021-10-28 12:00] LABS: SARS-CoV-2 PCR by NAA Not Detected (NotDetected)
[2021-10-28] MEDS: Atorvastatin Calcium 40 MG TAB PO SCH (19:31)
[2021-10-29] MEDS: Acetaminophen 325 MG TAB PO PRN (05:24)
[2021-10-29] MEDS: hydrOXYzine 25 MG TAB PO PRN (05:24)
[2021-10-29] MEDS: Gabapentin 300 MG CAP PO SCH ×3 (08:38→19:37)
[2021-10-29] MEDS: Lisinopril 2.5 MG TAB PO SCH (08:38)
[2021-10-29] MEDS: Aspirin 81 mg Enteric Coated Tablet PO SCH (08:38)
[2021-10-29] MEDS: Enoxaparin Sodium 40 MG/0.4 ML SYRINGE SC SCH (09:36)
[2021-10-29] MEDS: Atorvastatin Calcium 40 MG TAB PO SCH (19:37)
[2021-10-30] MEDS: Enoxaparin Sodium 40 MG/0.4 ML SYRINGE SC SCH (08:42)
[2021-10-30] MEDS: Aspirin 81 mg Enteric Coated Tablet PO SCH (08:42)
[2021-10-30] MEDS: Gabapentin 300 MG CAP PO SCH ×3 (08:42→20:53)
[2021-10-30] MEDS: Lisinopril 2.5 MG TAB PO SCH (11:25)
[2021-10-30] MEDS ORDERED: Lisinopril 2.5 MG TAB PO SCH ×2 (13:53→14:00)
[2021-10-30] MEDS: hydrOXYzine 25 MG TAB PO PRN (15:07)
[2021-10-30] MEDS: Atorvastatin Calcium 40 MG TAB PO SCH (20:52)
[2021-10-31] MEDS: hydrOXYzine 25 MG TAB PO PRN ×2 (04:05→21:27)
[2021-10-31] MEDS: Lorazepam 1 MG TAB PO PRN (04:05)
[2021-10-31] MEDS: Gabapentin 300 MG CAP PO SCH ×3 (08:11→21:27)
[2021-10-31] MEDS: Aspirin 81 mg Enteric Coated Tablet PO SCH (08:11)
[2021-10-31] MEDS: Lisinopril 2.5 MG TAB PO SCH (08:11)
[2021-10-31] MEDS: Enoxaparin Sodium 40 MG/0.4 ML SYRINGE SC SCH (08:12)
[2021-10-31] MEDS: Acetaminophen 325 MG TAB PO PRN ×2 (17:14→23:04)
[2021-10-31] MEDS: Lorazepam 0.5 MG TAB PO PRN (21:27)
[2021-10-31] MEDS: Atorvastatin Calcium 40 MG TAB PO SCH (21:27)
[2021-11-01] MEDS: Aspirin 81 mg Enteric Coated Tablet PO SCH (08:35)
[2021-11-01] MEDS: Enoxaparin Sodium 40 MG/0.4 ML SYRINGE SC SCH (08:35)
[2021-11-01] MEDS: Lisinopril 2.5 MG TAB PO SCH (08:36)
[2021-11-01] MEDS: Gabapentin 300 MG CAP PO SCH ×3 (08:36→20:28)
[2021-11-01] MEDS: Atorvastatin Calcium 40 MG TAB PO SCH (20:27)
[2021-11-01] MEDS: Acetaminophen 325 MG TAB PO PRN (20:29)
[2021-11-02] MEDS: Lorazepam 0.5 MG TAB PO PRN ×2 (03:22→21:19)
[2021-11-02] MEDS: Aspirin 81 mg Enteric Coated Tablet PO SCH (08:55)
[2021-11-02] MEDS: Gabapentin 300 MG CAP PO SCH ×3 (08:55→21:19)
[2021-11-02] MEDS: Enoxaparin Sodium 40 MG/0.4 ML SYRINGE SC SCH (08:55)
[2021-11-02] MEDS: Lisinopril 2.5 MG TAB PO SCH (10:09)
[2021-11-02] MEDS: Atorvastatin Calcium 40 MG TAB PO SCH (21:19)
[2021-11-02] MEDS: hydrOXYzine 25 MG TAB PO PRN (21:19)
[2021-11-03] MEDS: Lisinopril 2.5 MG TAB PO SCH (08:02)
[2021-11-03] MEDS: Enoxaparin Sodium 40 MG/0.4 ML SYRINGE SC SCH (08:02)
[2021-11-03] MEDS: Aspirin 81 mg Enteric Coated Tablet PO SCH (08:03)
[2021-11-03] MEDS: Gabapentin 300 MG CAP PO SCH ×3 (08:13→22:03)
[2021-11-03] MEDS: Atorvastatin Calcium 40 MG TAB PO SCH (22:02)
[2021-11-04 00:52] LABS: SARS-CoV-2 NAA Rapid Test Not Detected (NotDetected)
[2021-11-04] MEDS: Lisinopril 2.5 MG TAB PO SCH (10:39)
[2021-11-04] MEDS: Aspirin 81 mg Enteric Coated Tablet PO SCH (10:40)
[2021-11-04] MEDS: Enoxaparin Sodium 40 MG/0.4 ML SYRINGE SC SCH (10:40)
[2021-11-04] MEDS: Gabapentin 300 MG CAP PO SCH ×3 (10:41→20:32)
[2021-11-04] MEDS: Atorvastatin Calcium 40 MG TAB PO SCH (20:34)
[2021-11-05] MEDS: Acetaminophen 325 MG TAB PO PRN (11:21)
[2021-11-05] MEDS: Lisinopril 2.5 MG TAB PO SCH (11:22)
[2021-11-05] MEDS: Aspirin 81 mg Enteric Coated Tablet PO SCH (11:22)
[2021-11-05] MEDS: Enoxaparin Sodium 40 MG/0.4 ML SYRINGE SC SCH (11:22)
[2021-11-05] MEDS: Gabapentin 300 MG CAP PO SCH ×3 (11:23→20:48)
[2021-11-05] MEDS: Atorvastatin Calcium 40 MG TAB PO SCH (20:48)
[2021-11-05] MEDS: Lorazepam 0.5 MG TAB PO PRN (20:48)
[2021-11-05] MEDS: hydrOXYzine 25 MG TAB PO PRN (20:48)
[2021-11-05] MEDS: Lidocaine 5% Patch TD PRN (21:22)
[2021-11-06 06:27] LABS: Hemoglobin 12.2 g/dL (14.0-18.0); Platelet Count 281 thou/uL (130-400)
[2021-11-06] MEDS: Lisinopril 2.5 MG TAB PO SCH (07:53)
[2021-11-06] MEDS: Aspirin 81 mg Enteric Coated Tablet PO SCH (07:53)
[2021-11-06] MEDS: Acetaminophen 325 MG TAB PO PRN ×2 (07:54→16:45)
[2021-11-06] MEDS: Enoxaparin Sodium 40 MG/0.4 ML SYRINGE SC SCH (07:54)
[2021-11-06] MEDS: Gabapentin 300 MG CAP PO SCH ×3 (07:54→20:33)
[2021-11-06] MEDS: Lorazepam 0.5 MG TAB PO PRN (20:33)
[2021-11-06] MEDS: Atorvastatin Calcium 40 MG TAB PO SCH (20:33)
[2021-11-07 06:54] LABS: #Eosinphils 1.2 thou/uL (0.0-0.7); #Lymphocytes 2.5 thou/uL (1.20-3.40); #Monocytes 0.9 thou/uL (0.11-0.59); #Neutrophils 4.4 thou/uL (1.40-6.50); %Basophils 0.5 % (0.0-1.0); %Eosinophils 13.2 % (0.0-10.0); %Lymphocytes 27.8 % (21.0-51.0); %Monocytes 9.9 % (0.0-10.0); %Neutrophils 48.7 % (42.0-75.0); Hemoglobin 11.7 g/dL (14.0-18.0); Mean Corpuscular HGB CONC 33.2 g/dL (32.0-36.0); Mean Corpuscular Hemoglobin 30.5 pg (27.0-31.0); Mean Corpuscular Volume 92.1 fL (78.0-98.0); Mean Platelet Volume 6.7 fL (7.4-10.4); Platelet Count 289 thou/uL (130-400); Red Blood Cell (RBC) Count 3.82 mill/uL (4.70-6.10); White Blood Cell (WBC) Count 9.1 thou/uL (4.8-10.8)
[2021-11-07 07:18] LABS: Anion Gap 12 mmol/L (10-20); BUN (Urea Nitrogen) 27 mg/dL (8.4-25.7); Calc. Creatinine Clearance 61 mL/min (70-130); Calcium 9.3 mg/dL (7.8-10.44); Carbon Dioxide 23 mmol/L (22-29); Chloride 109 mmol/L (98-107); Glucose 104 mg/dL (70-105); Magnesium 1.9 mg/dL (1.6-2.6); Sodium 140 mmol/L (136-145)
[2021-11-07] MEDS: Gabapentin 300 MG CAP PO SCH ×3 (08:32→19:21)
[2021-11-07] MEDS: Lisinopril 2.5 MG TAB PO SCH (08:32)
[2021-11-07] MEDS: Aspirin 81 mg Enteric Coated Tablet PO SCH (08:32)
[2021-11-07] MEDS: Enoxaparin Sodium 40 MG/0.4 ML SYRINGE SC SCH (08:32)
[2021-11-07] MEDS: Atorvastatin Calcium 40 MG TAB PO SCH (19:21)
[2021-11-07] MEDS: Lorazepam 0.5 MG TAB PO PRN (19:22)
[2021-11-07] MEDS: hydrOXYzine 25 MG TAB PO PRN (19:22)
[2021-11-07] MEDS: Acetaminophen 325 MG TAB PO PRN (23:36)
[2021-11-07] MEDS ORDERED: Ondansetron ODT 8 MG TAB SL PRN (23:47)
[2021-11-08] MEDS: Lorazepam 0.5 MG TAB PO PRN ×2 (00:33→15:41)
[2021-11-08] MEDS: hydrOXYzine 25 MG TAB PO PRN ×2 (00:33→15:40)
[2021-11-08] MEDS: Gabapentin 300 MG CAP PO SCH ×3 (09:02→20:34)
[2021-11-08] MEDS: Lisinopril 2.5 MG TAB PO SCH (09:02)
[2021-11-08] MEDS: Aspirin 81 mg Enteric Coated Tablet PO SCH (09:02)
[2021-11-08] MEDS: Enoxaparin Sodium 40 MG/0.4 ML SYRINGE SC SCH (09:02)
[2021-11-08] MEDS ORDERED: Senokot S 8.6-50 MG TAB PO SCH (11:30)
[2021-11-08] MEDS ORDERED: Polyethylene Glycol 3350 17 GM Packet PO SCH (11:30)
[2021-11-08] MEDS ORDERED: Bisacodyl 5 MG TAB PO PRN (12:13)
[2021-11-08] MEDS ORDERED: Bisacodyl 10 MG SUPP PR PRN (12:13)
[2021-11-08] MEDS: Acetaminophen 325 MG TAB PO PRN (13:44)
[2021-11-08] MEDS: Senokot S 8.6-50 MG TAB PO SCH (20:34)
[2021-11-08] MEDS: Atorvastatin Calcium 40 MG TAB PO SCH (20:34)
[2021-11-09 05:09] LABS: #Eosinphils 0.9 thou/uL (0.0-0.7); #Lymphocytes 1.7 thou/uL (1.20-3.40); #Monocytes 1.2 thou/uL (0.11-0.59); #Neutrophils 5.5 thou/uL (1.40-6.50); %Basophils 0.3 % (0.0-1.0); %Eosinophils 9.7 % (0.0-10.0); %Lymphocytes 17.9 % (21.0-51.0); %Monocytes 13.3 % (0.0-10.0); %Neutrophils 58.8 % (42.0-75.0); Hemoglobin 12.7 g/dL (14.0-18.0); Mean Corpuscular HGB CONC 33.5 g/dL (32.0-36.0); Mean Corpuscular Hemoglobin 31.1 pg (27.0-31.0); Mean Corpuscular Volume 92.8 fL (78.0-98.0); Mean Platelet Volume 6.5 fL (7.4-10.4); Platelet Count 280 thou/uL (130-400); Red Blood Cell (RBC) Count 4.08 mill/uL (4.70-6.10); White Blood Cell (WBC) Count 9.3 thou/uL (4.8-10.8)
[2021-11-09 05:28] LABS: ALT (SGPT) 640 U/L (8-55); AST (SGOT) 349 U/L (5-34); Albumin 4.1 g/dL (3.5-5.0); Alkaline Phosphatase 202 U/L (40-110); Anion Gap 13 mmol/L (10-20); BUN (Urea Nitrogen) 24 mg/dL (8.4-25.7); Bilirubin, Total 0.6 mg/dL (0.2-1.2); Calc. Creatinine Clearance 47 mL/min (70-130); Calcium 10.1 mg/dL (7.8-10.44); Carbon Dioxide 26 mmol/L (22-29); Chloride 104 mmol/L (98-107); Globulin 3.5 g/dL (2.4-3.5); Glucose 116 mg/dL (70-105); Magnesium 2.1 mg/dL (1.6-2.6); Phosphorus 4.7 mg/dL (2.3-4.7); Potassium 4.7 mmol/L (3.5-5.1); Protein, Total 7.6 g/dL (6.0-8.3); Sodium 138 mmol/L (136-145)
[2021-11-09] MEDS: Senokot S 8.6-50 MG TAB PO SCH ×2 (09:00→19:51)
[2021-11-09] MEDS: Gabapentin 300 MG CAP PO SCH ×3 (09:00→19:51)
[2021-11-09] MEDS: Polyethylene Glycol 3350 17 GM Packet PO SCH (14:16)
[2021-11-09] MEDS: Aspirin 81 mg Enteric Coated Tablet PO SCH (14:16)
[2021-11-09] MEDS: Lisinopril 2.5 MG TAB PO SCH (14:17)
[2021-11-09] MEDS: Lorazepam 0.5 MG TAB PO PRN (22:35)
[2021-11-09] MEDS: hydrOXYzine 25 MG TAB PO PRN (22:35)
[2021-11-10 06:47] LABS: #Basophils 0.1 thou/uL (0.0-0.2); #Lymphocytes 2.2 thou/uL (1.20-3.40); #Monocytes 1.1 thou/uL (0.11-0.59); %Basophils 0.6 % (0.0-1.0); %Eosinophils 10.6 % (0.0-10.0); %Lymphocytes 23.8 % (21.0-51.0); %Monocytes 11.4 % (0.0-10.0); %Neutrophils 53.5 % (42.0-75.0); Hemoglobin 12.3 g/dL (14.0-18.0); Mean Corpuscular HGB CONC 33.8 g/dL (32.0-36.0); Mean Corpuscular Hemoglobin 31.3 pg (27.0-31.0); Mean Corpuscular Volume 92.8 fL (78.0-98.0); Mean Platelet Volume 6.7 fL (7.4-10.4); Platelet Count 280 thou/uL (130-400); Red Blood Cell (RBC) Count 3.92 mill/uL (4.70-6.10); White Blood Cell (WBC) Count 9.3 thou/uL (4.8-10.8)
[2021-11-10 06:57] LABS: ALT (SGPT) 351 U/L (8-55); AST (SGOT) 90 U/L (5-34); Albumin 3.9 g/dL (3.5-5.0); Alkaline Phosphatase 176 U/L (40-110); Anion Gap 13 mmol/L (10-20); BUN (Urea Nitrogen) 32 mg/dL (8.4-25.7); Bilirubin, Total 0.5 mg/dL (0.2-1.2); CK (CPK) 29 U/L (30-200); Calc. Creatinine Clearance 56 mL/min (70-130); Calcium 9.8 mg/dL (7.8-10.44); Carbon Dioxide 25 mmol/L (22-29); Chloride 104 mmol/L (98-107); Globulin 3.6 g/dL (2.4-3.5); Glucose 106 mg/dL (70-105); Phosphorus 4.3 mg/dL (2.3-4.7); Potassium 4.6 mmol/L (3.5-5.1); Protein, Total 7.5 g/dL (6.0-8.3); Sodium 137 mmol/L (136-145)
[2021-11-10 07:03] LABS: PTT 33.6 sec (22.9-36.1); Prothrombin Time 13.2 sec (12.0-14.7)
[2021-11-10 07:15] LABS: Hep C IgG Ab Non-Reactive (NonReactive); Hep C Index 0.06 S/CO (0-0.79)
[2021-11-10] MEDS: Gabapentin 300 MG CAP PO SCH ×3 (09:19→20:57)
[2021-11-10] MEDS: Polyethylene Glycol 3350 17 GM Packet PO SCH (09:20)
[2021-11-10] MEDS: Senokot S 8.6-50 MG TAB PO SCH ×2 (09:20→20:57)
[2021-11-10] MEDS: Aspirin 81 mg Enteric Coated Tablet PO SCH (09:20)
[2021-11-10] MEDS: Lisinopril 2.5 MG TAB PO SCH (09:20)
[2021-11-10] MEDS: Lidocaine 5% Patch TD PRN (17:33)
[2021-11-11 08:11] LABS: #Basophils 0.1 thou/uL (0.0-0.2); #Eosinphils 1.3 thou/uL (0.0-0.7); #Monocytes 0.9 thou/uL (0.11-0.59); #Neutrophils 4.7 thou/uL (1.40-6.50); %Basophils 0.6 % (0.0-1.0); %Eosinophils 14.2 % (0.0-10.0); %Monocytes 9.8 % (0.0-10.0); %Neutrophils 53.4 % (42.0-75.0); Hemoglobin 12.1 g/dL (14.0-18.0); Mean Corpuscular HGB CONC 32.7 g/dL (32.0-36.0); Mean Corpuscular Hemoglobin 30.3 pg (27.0-31.0); Mean Corpuscular Volume 92.5 fL (78.0-98.0); Mean Platelet Volume 7.2 fL (7.4-10.4); Platelet Count 281 thou/uL (130-400); RBC Distribution Width 13.9 % (11.5-14.5); Red Blood Cell (RBC) Count 3.99 mill/uL (4.70-6.10); White Blood Cell (WBC) Count 8.9 thou/uL (4.8-10.8)
[2021-11-11 08:30] LABS: ALT (SGPT) 228 U/L (8-55); AST (SGOT) 34 U/L (5-34); Albumin 3.8 g/dL (3.5-5.0); Alkaline Phosphatase 165 U/L (40-110); Anion Gap 16 mmol/L (10-20); BUN (Urea Nitrogen) 35 mg/dL (8.4-25.7); Bilirubin, Total 0.3 mg/dL (0.2-1.2); Calc. Creatinine Clearance 51 mL/min (70-130); Calcium 9.3 mg/dL (7.8-10.44); Carbon Dioxide 20 mmol/L (22-29); Chloride 104 mmol/L (98-107); Globulin 3.5 g/dL (2.4-3.5); Glucose 177 mg/dL (70-105); Magnesium 2.1 mg/dL (1.6-2.6); Phosphorus 4.3 mg/dL (2.3-4.7); Potassium 4.3 mmol/L (3.5-5.1); Protein, Total 7.3 g/dL (6.0-8.3); Sodium 136 mmol/L (136-145)
[2021-11-11] MEDS: Aspirin 81 mg Enteric Coated Tablet PO SCH (09:09)
[2021-11-11] MEDS: Lisinopril 2.5 MG TAB PO SCH (09:09)
[2021-11-11] MEDS: Senokot S 8.6-50 MG TAB PO SCH ×2 (09:09→20:01)
[2021-11-11] MEDS: hydrOXYzine 25 MG TAB PO PRN (09:09)
[2021-11-11] MEDS: Enoxaparin Sodium 40 MG/0.4 ML SYRINGE SC SCH (09:10)
[2021-11-11] MEDS: Gabapentin 300 MG CAP PO SCH ×3 (09:10→20:01)
[2021-11-11] MEDS: Polyethylene Glycol 3350 17 GM Packet PO SCH (09:10)
[2021-11-11 12:03] VITALS: BMI 21.1
[2021-11-11] MEDS: Acetaminophen 325 MG TAB PO PRN (13:03)
[2021-11-11] MEDS: Lorazepam 0.5 MG TAB PO SCH ×2 (13:03→18:32)
[2021-11-12] MEDS: Lorazepam 0.5 MG TAB PO SCH ×5 (05:16→20:41)
[2021-11-12 05:28] LABS: #Eosinphils 1.1 thou/uL (0.0-0.7); #Lymphocytes 2.6 thou/uL (1.20-3.40); #Monocytes 0.9 thou/uL (0.11-0.59); #Neutrophils 4.5 thou/uL (1.40-6.50); %Basophils 0.2 % (0.0-1.0); %Eosinophils 12.1 % (0.0-10.0); %Lymphocytes 28.9 % (21.0-51.0); %Monocytes 9.8 % (0.0-10.0); Hemoglobin 11.7 g/dL (14.0-18.0); Mean Corpuscular HGB CONC 31.7 g/dL (32.0-36.0); Mean Corpuscular Hemoglobin 29.2 pg (27.0-31.0); Mean Corpuscular Volume 92.1 fL (78.0-98.0); Mean Platelet Volume 6.6 fL (7.4-10.4); Platelet Count 277 thou/uL (130-400); RBC Distribution Width 13.8 % (11.5-14.5); Red Blood Cell (RBC) Count 3.99 mill/uL (4.70-6.10); White Blood Cell (WBC) Count 9.1 thou/uL (4.8-10.8)
[2021-11-12 05:48] LABS: ALT (SGPT) 159 U/L (8-55); AST (SGOT) 21 U/L (5-34); Albumin 3.9 g/dL (3.5-5.0); Alkaline Phosphatase 138 U/L (40-110); Anion Gap 16 mmol/L (10-20); BUN (Urea Nitrogen) 32 mg/dL (8.4-25.7); Bilirubin, Total 0.3 mg/dL (0.2-1.2); Calc. Creatinine Clearance 53 mL/min (70-130); Calcium 9.6 mg/dL (7.8-10.44); Carbon Dioxide 22 mmol/L (22-29); Chloride 107 mmol/L (98-107); Globulin 3.4 g/dL (2.4-3.5); Glucose 118 mg/dL (70-105); Magnesium 2.1 mg/dL (1.6-2.6); Phosphorus 4.3 mg/dL (2.3-4.7); Potassium 4.5 mmol/L (3.5-5.1); Protein, Total 7.3 g/dL (6.0-8.3); Sodium 140 mmol/L (136-145)
[2021-11-12] MEDS: Lisinopril 2.5 MG TAB PO SCH (09:49)
[2021-11-12] MEDS: Polyethylene Glycol 3350 17 GM Packet PO SCH (09:49)
[2021-11-12] MEDS: Senokot S 8.6-50 MG TAB PO SCH ×2 (09:49→20:41)
[2021-11-12] MEDS: Gabapentin 300 MG CAP PO SCH ×3 (09:49→20:42)
[2021-11-12] MEDS: Aspirin 81 mg Enteric Coated Tablet PO SCH (09:53)
[2021-11-12] MEDS: Enoxaparin Sodium 40 MG/0.4 ML SYRINGE SC SCH (09:53)
[2021-11-12 15:40] LABS: SARS-CoV-2 PCR by NAA Not Detected (NotDetected)
[2021-11-12] MEDS: hydrOXYzine 25 MG TAB PO PRN (20:41)
[2021-11-13] MEDS: Lorazepam 0.5 MG TAB PO SCH ×3 (06:19→18:43)
[2021-11-13] MEDS: Acetaminophen 325 MG TAB PO PRN ×2 (06:19→20:42)
[2021-11-13] MEDS: Aspirin 81 mg Enteric Coated Tablet PO SCH (08:41)
[2021-11-13] MEDS: Gabapentin 300 MG CAP PO SCH ×3 (08:41→20:42)
[2021-11-13] MEDS: Senokot S 8.6-50 MG TAB PO SCH ×2 (08:41→20:42)
[2021-11-13] MEDS: Enoxaparin Sodium 40 MG/0.4 ML SYRINGE SC SCH (08:41)
[2021-11-13] MEDS: Lisinopril 2.5 MG TAB PO SCH (08:41)
[2021-11-13] MEDS: Polyethylene Glycol 3350 17 GM Packet PO SCH (08:41)
[2021-11-13 09:24] LABS: #Lymphocytes 2.1 thou/uL (1.20-3.40); #Neutrophils 5.4 thou/uL (1.40-6.50); %Basophils 0.4 % (0.0-1.0); %Eosinophils 10.3 % (0.0-10.0); %Monocytes 10.3 % (0.0-10.0); Hemoglobin 12.9 g/dL (14.0-18.0); Mean Corpuscular HGB CONC 32.2 g/dL (32.0-36.0); Mean Corpuscular Hemoglobin 29.9 pg (27.0-31.0); Mean Corpuscular Volume 92.8 fL (78.0-98.0); Mean Platelet Volume 6.6 fL (7.4-10.4); Platelet Count 304 thou/uL (130-400); RBC Distribution Width 13.8 % (11.5-14.5); Red Blood Cell (RBC) Count 4.32 mill/uL (4.70-6.10); White Blood Cell (WBC) Count 9.5 thou/uL (4.8-10.8)
[2021-11-13 09:45] LABS: ALT (SGPT) 114 U/L (8-55); AST (SGOT) 15 U/L (5-34); Albumin 4.2 g/dL (3.5-5.0); Alkaline Phosphatase 138 U/L (40-110); Anion Gap 13 mmol/L (10-20); BUN (Urea Nitrogen) 29 mg/dL (8.4-25.7); Bilirubin, Total 0.4 mg/dL (0.2-1.2); Calc. Creatinine Clearance 49 mL/min (70-130); Calcium 10.3 mg/dL (7.8-10.44); Carbon Dioxide 28 mmol/L (22-29); Chloride 102 mmol/L (98-107); Globulin 3.8 g/dL (2.4-3.5); Glucose 122 mg/dL (70-105); Magnesium 2.1 mg/dL (1.6-2.6); Phosphorus 4.3 mg/dL (2.3-4.7); Potassium 4.8 mmol/L (3.5-5.1); Sodium 138 mmol/L (136-145)
[2021-11-13] MEDS: hydrOXYzine 25 MG TAB PO PRN ×2 (13:20→20:39)
[2021-11-14] MEDS: Lorazepam 0.5 MG TAB PO SCH ×4 (00:43→18:53)
[2021-11-14] MEDS: Lisinopril 2.5 MG TAB PO SCH (08:02)
[2021-11-14] MEDS: Polyethylene Glycol 3350 17 GM Packet PO SCH (08:02)
[2021-11-14] MEDS: Senokot S 8.6-50 MG TAB PO SCH ×2 (08:02→21:03)
[2021-11-14] MEDS: Enoxaparin Sodium 40 MG/0.4 ML SYRINGE SC SCH (08:02)
[2021-11-14] MEDS: Aspirin 81 mg Enteric Coated Tablet PO SCH (08:02)
[2021-11-14] MEDS: Gabapentin 300 MG CAP PO SCH ×3 (08:02→21:03)
[2021-11-14 08:36] LABS: #Basophils 0.1 thou/uL (0.0-0.2); #Lymphocytes 2.2 thou/uL (1.20-3.40); %Basophils 0.6 % (0.0-1.0); %Eosinophils 10.3 % (0.0-10.0); %Lymphocytes 23.8 % (21.0-51.0); %Monocytes 10.9 % (0.0-10.0); %Neutrophils 54.4 % (42.0-75.0); Hemoglobin 11.7 g/dL (14.0-18.0); Mean Corpuscular HGB CONC 32.1 g/dL (32.0-36.0); Mean Corpuscular Hemoglobin 29.8 pg (27.0-31.0); Mean Corpuscular Volume 92.7 fL (78.0-98.0); Mean Platelet Volume 6.6 fL (7.4-10.4); Platelet Count 271 thou/uL (130-400); RBC Distribution Width 13.7 % (11.5-14.5); Red Blood Cell (RBC) Count 3.93 mill/uL (4.70-6.10); White Blood Cell (WBC) Count 9.2 thou/uL (4.8-10.8)
[2021-11-14 08:56] LABS: ALT (SGPT) 78 U/L (8-55); AST (SGOT) 11 U/L (5-34); Albumin 3.9 g/dL (3.5-5.0); Alkaline Phosphatase 120 U/L (40-110); Anion Gap 11 mmol/L (10-20); BUN (Urea Nitrogen) 28 mg/dL (8.4-25.7); Bilirubin, Total 0.3 mg/dL (0.2-1.2); Calc. Creatinine Clearance 53 mL/min (70-130); Calcium 9.6 mg/dL (7.8-10.44); Carbon Dioxide 27 mmol/L (22-29); Chloride 104 mmol/L (98-107); Globulin 3.5 g/dL (2.4-3.5); Glucose 125 mg/dL (70-105); Phosphorus 3.7 mg/dL (2.3-4.7); Potassium 4.5 mmol/L (3.5-5.1); Protein, Total 7.4 g/dL (6.0-8.3); Sodium 137 mmol/L (136-145)
[2021-11-14] MEDS: hydrOXYzine 25 MG TAB PO PRN (21:03)
[2021-11-15] MEDS: Lorazepam 0.5 MG TAB PO SCH ×4 (01:09→17:02)
[2021-11-15 07:05] LABS: #Basophils 0.1 thou/uL (0.0-0.2); #Lymphocytes 2.3 thou/uL (1.20-3.40); #Monocytes 1.1 thou/uL (0.11-0.59); #Neutrophils 5.4 thou/uL (1.40-6.50); %Basophils 0.5 % (0.0-1.0); %Eosinophils 9.8 % (0.0-10.0); %Lymphocytes 23.6 % (21.0-51.0); %Monocytes 11.3 % (0.0-10.0); %Neutrophils 54.7 % (42.0-75.0); Hemoglobin 11.7 g/dL (14.0-18.0); Mean Corpuscular HGB CONC 32.7 g/dL (32.0-36.0); Mean Corpuscular Hemoglobin 30.3 pg (27.0-31.0); Mean Corpuscular Volume 92.7 fL (78.0-98.0); Mean Platelet Volume 6.5 fL (7.4-10.4); Platelet Count 249 thou/uL (130-400); RBC Distribution Width 13.7 % (11.5-14.5); Red Blood Cell (RBC) Count 3.86 mill/uL (4.70-6.10); White Blood Cell (WBC) Count 9.8 thou/uL (4.8-10.8)
[2021-11-15 07:28] LABS: ALT (SGPT) 64 U/L (8-55); AST (SGOT) 12 U/L (5-34); Albumin 3.8 g/dL (3.5-5.0); Alkaline Phosphatase 109 U/L (40-110); Anion Gap 13 mmol/L (10-20); BUN (Urea Nitrogen) 26 mg/dL (8.4-25.7); Bilirubin, Total 0.2 mg/dL (0.2-1.2); Calc. Creatinine Clearance 62 mL/min (70-130); Calcium 9.5 mg/dL (7.8-10.44); Carbon Dioxide 23 mmol/L (22-29); Chloride 106 mmol/L (98-107); Globulin 3.3 g/dL (2.4-3.5); Glucose 121 mg/dL (70-105); Phosphorus 4.2 mg/dL (2.3-4.7); Potassium 4.6 mmol/L (3.5-5.1); Protein, Total 7.1 g/dL (6.0-8.3); Sodium 137 mmol/L (136-145)
[2021-11-15] MEDS: Polyethylene Glycol 3350 17 GM Packet PO SCH (08:55)
[2021-11-15] MEDS: Enoxaparin Sodium 40 MG/0.4 ML SYRINGE SC SCH (08:55)
[2021-11-15] MEDS: Aspirin 81 mg Enteric Coated Tablet PO SCH (08:56)
[2021-11-15] MEDS: Lisinopril 2.5 MG TAB PO SCH (08:56)
[2021-11-15] MEDS: Gabapentin 300 MG CAP PO SCH ×3 (08:56→19:17)
[2021-11-15] MEDS: Senokot S 8.6-50 MG TAB PO SCH ×2 (08:56→19:18)
[2021-11-15 11:12] LABS: Hep B Surface AG-Rflx Sendout Negative (Negative); Hepatitis B Core Total Positive (Negative); Hepatitis B Surface AB-Sendout Reactive (.)
[2021-11-15] MEDS: hydrOXYzine 25 MG TAB PO PRN (17:02)
[2021-11-16] MEDS: Lorazepam 0.5 MG TAB PO SCH ×5 (06:15→23:48)
[2021-11-16] MEDS: hydrOXYzine 25 MG TAB PO PRN ×2 (06:15)
[2021-11-16] MEDS: Polyethylene Glycol 3350 17 GM Packet PO SCH (09:52)
[2021-11-16] MEDS: Enoxaparin Sodium 40 MG/0.4 ML SYRINGE SC SCH (09:52)
[2021-11-16] MEDS: Aspirin 81 mg Enteric Coated Tablet PO SCH (09:53)
[2021-11-16] MEDS: Lisinopril 2.5 MG TAB PO SCH (09:53)
[2021-11-16] MEDS: Gabapentin 300 MG CAP PO SCH ×3 (09:54→19:25)
[2021-11-16] MEDS: Senokot S 8.6-50 MG TAB PO SCH ×2 (09:54→19:25)
[2021-11-16] MEDS: Lidocaine 5% Patch TD SCH (12:52)
[2021-11-17] MEDS: Transdermal Patch Removal TOP SCH (00:16)
[2021-11-17] MEDS: Lorazepam 0.5 MG TAB PO SCH ×4 (06:02→23:15)
[2021-11-17] MEDS: Polyethylene Glycol 3350 17 GM Packet PO SCH (08:53)
[2021-11-17] MEDS: Gabapentin 300 MG CAP PO SCH ×3 (08:53→20:03)
[2021-11-17] MEDS: Enoxaparin Sodium 40 MG/0.4 ML SYRINGE SC SCH (08:53)
[2021-11-17] MEDS: Aspirin 81 mg Enteric Coated Tablet PO SCH (08:55)
[2021-11-17] MEDS: Senokot S 8.6-50 MG TAB PO SCH ×2 (08:55→20:03)
[2021-11-17] MEDS: Lisinopril 2.5 MG TAB PO SCH (08:56)
[2021-11-17] MEDS: Lidocaine 5% Patch TD SCH (12:14)
[2021-11-18] MEDS: Transdermal Patch Removal TOP SCH (01:12)
[2021-11-18] MEDS: Lorazepam 0.5 MG TAB PO SCH ×4 (05:51→23:07)
[2021-11-18] MEDS: Aspirin 81 mg Enteric Coated Tablet PO SCH (10:07)
[2021-11-18] MEDS: Gabapentin 300 MG CAP PO SCH ×3 (10:07→20:05)
[2021-11-18] MEDS: Senokot S 8.6-50 MG TAB PO SCH ×2 (10:07→20:05)
[2021-11-18] MEDS: Enoxaparin Sodium 40 MG/0.4 ML SYRINGE SC SCH (10:08)
[2021-11-18] MEDS: Lisinopril 2.5 MG TAB PO SCH (10:08)
[2021-11-18] MEDS: Polyethylene Glycol 3350 17 GM Packet PO SCH (10:08)
[2021-11-18] MEDS: Lidocaine 5% Patch TD SCH (12:08)
[2021-11-19] MEDS: Transdermal Patch Removal TOP SCH (02:09)
[2021-11-19] MEDS: Lorazepam 0.5 MG TAB PO SCH ×2 (05:48→12:15)
[2021-11-19 05:54] VITALS: TEMP 97.5
[2021-11-19] MEDS: Lisinopril 2.5 MG TAB PO SCH (08:49)
[2021-11-19] MEDS: Aspirin 81 mg Enteric Coated Tablet PO SCH (08:49)
[2021-11-19] MEDS: Polyethylene Glycol 3350 17 GM Packet PO SCH (08:49)
[2021-11-19] MEDS: Enoxaparin Sodium 40 MG/0.4 ML SYRINGE SC SCH (08:49)
[2021-11-19] MEDS: Gabapentin 300 MG CAP PO SCH (08:51)
[2021-11-19] MEDS: Senokot S 8.6-50 MG TAB PO SCH (08:53)
[2021-11-19 09:04] VITALS: BP 128/76
[2021-11-19 12:02] LABS: SARS-CoV-2 PCR by NAA Not Detected (NotDetected)
[2021-11-19] MEDS: Lidocaine 5% Patch TD SCH (12:15)
== END 2021-11-19 15:35 | disposition home or self-care (01) | DRG 682 ==
LOC: ERS 18:53 → 2SW 21:31 → OBSVTOIN 10-11 15:48 → T4-B 10-11 17:54 → 2NO 10-18 14:39 → SURG A 10-19 22:20
PROVIDERS: ADMIT Internal Medicine; ATTEND Family Medicine
DX: N17.9 Acute kidney failure, unspecified (principal); G92.8 Other toxic encephalopathy; N39.0 Urinary tract infection, site not specified; I13.0 Hypertensive heart and chronic kidney disease with heart failure and stage 1 through stage 4 chronic kidney disease, or unspecified chronic kidney disease; I50.42 Chronic combined systolic (congestive) and diastolic (congestive) heart failure; G93.1 Anoxic brain damage, not elsewhere classified; F20.89 Other schizophrenia; R07.89 Other chest pain; Z20.822 Contact with and (suspected) exposure to COVID-19; Z66 Do not resuscitate; Z23 Encounter for immunization; I25.10 Atherosclerotic heart disease of native coronary artery without angina pectoris; I25.5 Ischemic cardiomyopathy; F31.9 Bipolar disorder, unspecified; F15.10 Other stimulant abuse, uncomplicated; F17.210 Nicotine dependence, cigarettes, uncomplicated; M54.2 Cervicalgia; G89.29 Other chronic pain; N18.31 Chronic kidney disease, stage 3a; K76.1 Chronic passive congestion of liver; D63.1 Anemia in chronic kidney disease; K59.00 Constipation, unspecified; R00.1 Bradycardia, unspecified; Z95.5 Presence of coronary angioplasty implant and graft; Z89.511 Acquired absence of right leg below knee; Z90.49 Acquired absence of other specified parts of digestive tract; Z82.49 Family history of ischemic heart disease and other diseases of the circulatory system; I25.2 Old myocardial infarction; Z91.14 Patient's other noncompliance with medication regimen
CPT/HCPCS: 36415; 36416; 71045; 72050; 74018; 76705; 76770; 80048; 80053; 80306; 80307; 81003; 81015; 82550; 83605; 83690; 83735; 84100; 84484; 85014; 85018; 85025; 85049; 85610; 85730; 86704; 86705; 86706; 86707; 86803; 87086; 87340; 87350; 90471; 90732; 93005; 93010; 96374; G0009; G0378; J0696; J1630; J1644; J1650; J2060; J3475; J7030; J7050; Q0162; U0002; U0003; U0005

== ENCOUNTER 2021-12-20 02:57 | Observation (INO) | payer SELFPAY ==
[2021-12-20 04:55] VITALS: BMI 21.9
[2021-12-20] MEDS: Enoxaparin Sodium 40 MG/0.4 ML SYRINGE SC SCH (08:49)
[2021-12-20] MEDS ORDERED: Iopamidol 370 76% 100 ML VIAL ONE (11:34)
[2021-12-20] MEDS: Nicotine 14 MG PATCH TD SCH (13:08)
[2021-12-20] MEDS ORDERED: Haloperidol Lactate 5 MG/ML VIAL IM SCH (21:15)
[2021-12-20 21:46] LABS: SARS-CoV-2 PCR by NAA Not Detected (NotDetected)
[2021-12-20] MEDS: Atorvastatin Calcium 40 MG TAB PO SCH (23:03)
[2021-12-21] MEDS ORDERED: Haloperidol Lactate 5 MG/ML VIAL IM SCH (02:00)
[2021-12-21 06:27] LABS: #Basophils 0.1 thou/uL (0.0-0.2); #Eosinphils 0.9 thou/uL (0.0-0.7); #Lymphocytes 2.3 thou/uL (1.20-3.40); #Monocytes 0.9 thou/uL (0.11-0.59); #Neutrophils 4.8 thou/uL (1.40-6.50); %Basophils 0.7 % (0.0-1.0); %Eosinophils 9.9 % (0.0-10.0); %Lymphocytes 26.2 % (21.0-51.0); %Monocytes 9.9 % (0.0-10.0); %Neutrophils 53.4 % (42.0-75.0); Mean Corpuscular HGB CONC 32.5 g/dL (32.0-36.0); Mean Corpuscular Hemoglobin 30.4 pg (27.0-31.0); Mean Corpuscular Volume 93.4 fL (78.0-98.0); Mean Platelet Volume 6.4 fL (7.4-10.4); Platelet Count 304 thou/uL (130-400); RBC Distribution Width 12.7 % (11.5-14.5); Red Blood Cell (RBC) Count 4.28 mill/uL (4.70-6.10); White Blood Cell (WBC) Count 8.9 thou/uL (4.8-10.8)
[2021-12-21 06:45] LABS: ALT (SGPT) 17 U/L (8-55); AST (SGOT) 16 U/L (5-34); Albumin 4.5 g/dL (3.5-5.0); Alkaline Phosphatase 93 U/L (40-110); Anion Gap 16 mmol/L (10-20); BUN (Urea Nitrogen) 25 mg/dL (8.4-25.7); Bilirubin, Total 0.4 mg/dL (0.2-1.2); Calc. Creatinine Clearance 53 mL/min (70-130); Carbon Dioxide 25 mmol/L (22-29); Chloride 101 mmol/L (98-107); Globulin 3.7 g/dL (2.4-3.5); Glucose 99 mg/dL (70-105); Potassium 4.3 mmol/L (3.5-5.1); Protein, Total 8.2 g/dL (6.0-8.3); Sodium 138 mmol/L (136-145)
[2021-12-21] MEDS ORDERED: Aspirin Chewable 81 MG TAB PO SCH (09:00)
[2021-12-21] MEDS: Enoxaparin Sodium 40 MG/0.4 ML SYRINGE SC SCH (09:11)
[2021-12-21] MEDS: Nicotine 14 MG PATCH TD SCH (12:33)
[2021-12-21 15:24] VITALS: BP 133/96; TEMP 98.3
[2021-12-21] MEDS: Atorvastatin Calcium 40 MG TAB PO SCH (20:40)
[2021-12-23] MEDS ORDERED: FLU VACC QS2021-22(6MOS UP)/PF 60 MCG/0.5 ML SYRINGE IM ONE (09:00)
== END 2021-12-21 21:00 ==
LOC: 2NO 04:27
PROVIDERS: ADMIT Family Medicine; ATTEND Family Medicine
DX: R07.9 Chest pain, unspecified (principal); R79.89 Other specified abnormal findings of blood chemistry; R06.02 Shortness of breath; I25.10 Atherosclerotic heart disease of native coronary artery without angina pectoris; I25.84 Coronary atherosclerosis due to calcified coronary lesion; I11.0 Hypertensive heart disease with heart failure; I50.20 Unspecified systolic (congestive) heart failure; F20.89 Other schizophrenia; F31.9 Bipolar disorder, unspecified; G30.9 Alzheimer's disease, unspecified; F02.80 Dementia in other diseases classified elsewhere, unspecified severity, without behavioral disturbance, psychotic disturbance, mood disturbance, and anxiety; I25.5 Ischemic cardiomyopathy; F17.210 Nicotine dependence, cigarettes, uncomplicated; F15.11 Other stimulant abuse, in remission; Z51.5 Encounter for palliative care; Z66 Do not resuscitate; Z79.82 Long term (current) use of aspirin; Z79.899 Other long term (current) drug therapy; Z89.511 Acquired absence of right leg below knee; Z95.5 Presence of coronary angioplasty implant and graft; Z20.822 Contact with and (suspected) exposure to COVID-19
CPT/HCPCS: 36415; 71275; 80053; 85025; 96372; G0378; J1630; J1650; Q9967; U0003; U0005